=== PATIENT | male | born 1950 | race Caucasian/White ===

== ENCOUNTER 2018-08-08 06:37 | Day surgery (SDC) | payer MEDICARE, OTHER ==
--- NOTE | 2018-08-07 13:19 | PREOPHP ---
DATE OF ADMISSION: 08/08/2018 HISTORY OF PRESENT ILLNESS: This 68-year-old patient is admitted for elective cataract surgery of th e right eye. The patient has had a 2 year history of decreased vision without prior history of eye d isease or injury. The patient does have a positive systemic history for insulin-dependent diabetes m ellitus for the past 2 years as well as some systemic hypertension, neuropathy and GERD. CURRENT MEDICATIONS: Include: 1. Aspirin (discontinued 1 week prior to surgery). 2. Thyroid, 3. Basaglar. 4. Esomeprazole. 5. Ferrous sulfate. 6. Gabapentin. 7. Metformin. 8. Metoprolol 9. Ranitidine. ALLERGIES: THERE ARE NO KNOWN ALLERGIES. PHYSICAL EXAMINATION: Visual acuity with best correction is finger counting in the right eye and 20/ 200 in the left eye. Slit lamp examination reveals advanced nuclear sclerotic cataract and moderate posterior subcapsular cataract in the right eye. Applanation tonometry is 11 mmHg in both eyes. Exa mination of the retina reveals normal appearing optic disk and macula region. 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 DIAGNOSIS: Nuclear sclerotic and posterior subcapsular cataract, right eye. PLAN: Cataract extraction with lens implant, right eye. The risks and alternatives to the surgery h ave been discussed with the patient as well as the potential for improvement of visual acuity leading to greater ability to perform activities of daily living. The patient understands this and agrees t o proceed with surgery. Dictated By: JAMIA MONTERROSO/NIESHA Conf#: [id number] DID#: [id number]
[~2018-08-08] VITALS: Ht 172.7 cm; Wt 65.9 kg
[2018-08-08] VITALS (11 sets, daily range): BP systolic 136–171; BP diastolic 78–88; PULSE 70–73; RESP 14–21; Ht 172.7 cm; Wt 65.9 kg
[2018-08-08] MEDS ORDERED: TROPICAMIDE 1% 15 ML OPH OPER SCH (07:00)
[2018-08-08] MEDS ORDERED: SOD CHLORIDE 0.9% 1,000 ML IV SCH (07:00)
[2018-08-08] MEDS ORDERED: DICLOFENAC 0.1% 2.5 ML OPH OPER SCH (07:00)
[2018-08-08] MEDS ORDERED: CYCLOPENTOLATE/PHENYLEPH 2 ML OPH OPER SCH (07:00)
[2018-08-08] MEDS ORDERED: MOXIFLOXACIN 0.5% 3 ML OPH OPER SCH (07:00)
[2018-08-08] MEDS ORDERED: FER325 PO (07:23)
[2018-08-08] MEDS ORDERED: ALEN70TA5 PO (07:24)
[2018-08-08] MEDS ORDERED: DICL2SOL TP (07:24)
[2018-08-08] MEDS ORDERED: RANI300T PO (07:24)
[2018-08-08] MEDS ORDERED: METF100010 PO (07:25)
[2018-08-08] MEDS ORDERED: AMLO-147 PO (07:25)
[2018-08-08] MEDS ORDERED: THYR30TA PO (07:26)
[2018-08-08] MEDS ORDERED: METO-335 PO (07:26)
[2018-08-08] MEDS ORDERED: ESOM40CA PO (07:26)
--- NOTE | 2018-08-08 09:23 | PREAC ---
Date/Time of Note Date/Time of Note DATE: 08/08/18 TIME: 09:18 Anesthesia Eval and Record Evaluation Time Pre-Procedure Interview DATE: 08/08/18 TIME: 09:18 Age 68 Sex male NPO: 8 hrs Preoperative diagnosis Right Cataract Planned procedure Right Cataract Extraction and IOL Past Medical History Past Medical History: Includes Cardio: HTN, Dyslipidemia Endo: Diabetes, Hypothyroid Pulm: Other Neuro: Other Musculoskeletal: Other Renal: Other Hepatic: Other GI: Obesity Heme: Other Psych: Depression, Anxiety Recreational drugs: Other : Other Surgery & Anesthesia Issues Aspiration risk Meds Anticoagulation: No Beta Hilary within 24 hr: Yes Reason Beta Hilary not given: Other Reported Medications Metoprolol Succinate* (Toprol XL*) 25 Mg Tab.sr.24h, 75 MG PO DAILY, #90 TAB 08/08/18 Esomeprazole Mag Trihydrate (Nexium) 40 Mg Capsule.dr, 40 MG PO DAILY, #30 CAP 08/08/18 Thyroid* ([place] Thyroid*) 30 Mg Tablet, 30 MG PO DAILY, TAB 08/08/18 Amlodipine Besylate* (Amlodipine Besylate*) 10 Mg Tablet, 10 MG PO DAILY, #30 TAB 08/08/18 Metformin Hcl* (Metformin Hcl*) 1,000 Mg Tablet, 1000 MG PO WITH BREAKFAST DINNE, #60 TAB 08/08/18 Ranitidine Hcl* (Ranitidine Hcl*) 300 Mg Tablet, 300 MG PO HS, #30 TAB 08/08/18 Diclofenac Sodium (Pennsaid) 2 Gm Soln.pk.g., 2 GM TP BID 08/08/18 Alendronate Sodium* (Fosamax*) 70 Mg Tablet, 70 MG PO Q7D, #4 TAB 08/08/18 Ferrous Sulfate* (Ferrous Sulfate*) 325 Mg Tabec, 325 MG PO BID, TAB 08/08/18 Current Medications Diclofenac Sodium (Voltaren 0.1%) 1 drop Q5 MIN X 3 OPER Last administered on 08/08/18at 07:27; Admin Dose 1 DROP; Start 08/08/18 at 07:00 Tropicamide (Mydriacyl 1%) 1 drop Q5 MIN X3 OPER Last administered on 08/08/18at 07:28; Admin Dose 1 DROP; Start 08/08/18 at 07:00 Moxifloxacin HCl (Vigamox) 1 drop Q5 MIN X 3 OPER Last administered on 08/08/18at 07:27; Admin Dose 1 DROP; Start 08/08/18 at 07:00 Cyclopentolate/ Phenylephrine (Cyclomydril Oph 2 ml) 1 drop Q5 MIN X 3 OPER Last administered on 08/08/18at 07:27; Admin Dose 1 DROP; Start 08/08/18 at 07:00 Sodium Chloride 1,000 ml @ 25 mls/hr Q24H IV ; Start 08/08/18 at 07:00 Meds reviewed: Yes Allergies Coded Allergies: No Known Allergy (Unverified , 08/08/18) Allergies Reviewed: Yes Labs/Studies Labs Reviewed: Reviewed by anesthesiologist Result Diagram: 08/08/18 0700 Laboratory Tests 08/08/18 07:00 test: N/A Studies: ECG, CXR Pre-procedure Exam Last vitals Vital Signs Date Temp Pulse Resp B/P (MAP) Pulse Ox O2 O2 Flow FiO2 Time Delivery Rate 08/08/18 96.7 73 16 159/78 99 Room Air 07:54 (105) Airway: Adequate mouth opening Mallampati: Mallampati II Teeth: Normal Lung: Normal Heart: Normal Anticipated Difficutly with IV: Anticipate Difficult IV Access ASA Physical Status ASA physical status: 2 Emergency: None Planned Anesthetic General/MAC: MAC Neuraxial: Other Nerve block: Other Planned Pain Management Parenteral pain med, Local by surgeon Pre-operative Attestations Prior to commencing anesthesia and surgery, the patient was re-evaluated, there was verification of: *The patient's identity *The results of appropriate recent lab work and preoperative vital signs *The above evaluation not changing prior to induction *Anesthetic plan, risk benefits, alternative and complications discussed with patient/family; questions answered; patient/family understands, accepts and wishes to proceed. EULALIO WILSON MD Aug 08, 2018 09:23
[2018-08-08] MEDS ORDERED: CEFAZOLIN 1 GM INJ ONE (09:40)
[2018-08-08] MEDS ORDERED: NA HYALURONATE/CHONDROITIN 0.5 ML SYG ONE (09:40)
[2018-08-08] MEDS ORDERED: DEXAMETHASONE 4 MG/ML 1 ML INJ ONE (09:40)
[2018-08-08] MEDS ORDERED: LIDOCAINE 4% (MPF) 5 ML INJ ONE (09:40)
[2018-08-08] MEDS ORDERED: CARBACHOL 0.01% 1.5 ML OPH INJ ONE (09:40)
[2018-08-08] MEDS ORDERED: LIDOCAINE 4% CR ONE (10:27)
[2018-08-08] MEDS ORDERED: PROPOFOL 20 ML ONE (10:28)
[2018-08-08] MEDS ORDERED: LIDOCAINE 100 MG SYRINGE ONE (10:28)
--- NOTE | 2018-08-08 10:38 | SIPON ---
Date/Time of Note Date/Time of Note DATE: 08/08/18 TIME: 10:37 Operative Report Preoperative Diagnosis mature cataract od Postoperative Diagnosis same Operation/Procedure Performed cataract extraction with lens implant od Surgeon jamia pretty rn first assistant none Anesthesia: MAC Estimated blood loss: none Transfusion Required none Specimen none Grafts/Implants posterior chamber lens implant Complications none JAMIA PRETTY MD Aug 08, 2018 10:38
--- NOTE | 2018-08-08 10:39 | PAC ---
Date/Time of Note Date/Time of Note DATE: 08/08/18 TIME: 10:38 Post-Anesthesia Notes Post-Anesthesia Note Last documented vital signs Vital Signs Date Temp Pulse Resp B/P (MAP) Pulse Ox O2 O2 Flow FiO2 Time Delivery Rate 08/08/18 96.7 73 16 159/78 99 Room Air 07:54 (105) Activity: WNL Respiratory function: WNL Cardiovascular function: WNL Mental status: Baseline Pain reasonably controlled: Yes Hydration appropriate: Yes Nausea/Vomiting absent: No EULALIO WILSON MD Aug 08, 2018 10:39
[2018-08-08] MEDS ORDERED: OXYCODONE/ACETAMINOPHEN (5/325) TAB ONE (11:16)
[2018-08-08] MEDS ORDERED: OXYCODONE/ACETAMINOPHEN (5/325) TAB PO PRN (11:30)
--- NOTE | 2018-08-08 14:08 | OPR ---
DATE OF OPERATION: 08/08/2018 PREOPERATIVE DIAGNOSIS: Mature cataract, right eye. POSTOPERATIVE DIAGNOSIS: Mature cataract, right eye. PROCEDURE: Cataract extraction with lens implant, right eye. SURGEON: Jamia Arias MD ANESTHESIOLOGIST: Kelechi Aranda MD ANESTHESIA: Local standby. PROCEDURE: The patient was brought to the operating room and placed on the table with an IV in place and the patient attached to an conveyor monitor. Oxygen was given via face mask. After some intravenous sedation was administered, local anesthesia was given using Xylocaine 2% with epinephrine, mixed with Marcaine 0.5%. This was given in a lid block and retrobulbar injection. The p atient was then prepped and draped in the usual sterile manner. A wire lid speculum was inserted between the lids of the right eye. A Superblade was used to enter th e anterior chamber at the corneoscleral limbus at the 10:30 o'clock position. A separate incision was made using a 3.0-mm keratome which entered the corneoscleral junction at the 12 o'clock position. Th rough this 3-mm opening, an irrigating cystotome was introduced into the anterior chamber. The chambe r was filled with Viscoat and an anterior capsulotomy was performed. Balanced salt solution was then used for hydrodissection of the lens. A phacoemulsification handpiece was then brought into the fie ld and introduced into the anterior chamber. The lens nucleus was emulsified using a deep groove and cracking the nucleus into quadrants. Following this, each quadrant was aspirated and emulsified at th e pupillary margin. This lens nucleus was noted to be 4+ density and required a higher phacoemulsification setting in ord er to fully emulsify the lens nucleus. After this was satisfactorily completed, attention was turned to removal of lens cortical material. After this was completed, the irrigation/aspiration handpiece was brought to the field, introduced in to the posterior chamber, and the lens cortical material was removed. When this was completed, additi onal Viscoat was injected into the anterior and posterior chambers. The 3-mm opening had its internal lips enlarged, and then the posterior chamber intraocular lens malia uring 20.0 diopters ([employer] [id number]) was then injected into the posterior chamber using the lens injector system. After the leading haptic was introduced into the capsular bag and th e lens optic was present in the center of the eye, the injector was removed and the trailing haptic w as grasped with non-toothed forceps and introduced into the capsular fold superiorly. A [place] hook was then used to rotate the intraocular lens so that the lips were oriented in the horizontal meridia n. One 10-0 nylon suture was placed across the wound. Prior to tying, the irrigation/aspiration handpiece was reintroduced into the anterior chamber to rem ove the Viscoat. Miochol was instilled to constrict the pupil, and then the 10-0 nylon suture was tie d. The ends were cut short and then the knot was buried. Then, 0.5 mL of dexamethasone and 0.5 mL of Ancef were injected into the sub-Tenon space in the infer ior fornix. Ciloxan drops were then placed on the surface of the eye. The speculum was removed and a patch was applied. The patient then left the operating room in satisfactory condition. Dictated By: JAMIA MONTERROSO/NIESHA Conf#: [id number] DID#: [id number]
--- NOTE | 2018-08-10 19:57 | RADRPT ---
Vent Rate: 69 bpm RR Interval: 0 msec WI Interval: 166 msec QRS Duration: 90 msec QT Interval: 426 msec QTC Interval: 456 msec P-R-T [place]: 51 - 26 - 168 degrees Normal sinus rhythm Septal infarct , age undetermined T wave abnormality, consider lateral ischemia Abnormal ECG Electronically Signed By: Joseluis Bassett [id number]
== END 2018-08-08 12:21 | disposition home or self-care (01) ==
LOC: SDS 06:37
PROVIDERS: ATTEND Ophthalmology
DX: H25.12 Age-related nuclear cataract, left eye (principal); I10 Essential (primary) hypertension; Z79.82 Long term (current) use of aspirin; E11.9 Type 2 diabetes mellitus without complications; Z79.84 Long term (current) use of oral hypoglycemic drugs; E78.5 Hyperlipidemia, unspecified; E03.9 Hypothyroidism, unspecified
CPT/HCPCS: 66984; 71045; 80053; 82962; 85610; 85730; 93005; J0690; J1100; J2001; V2632

== ENCOUNTER 2018-09-01 11:28 | Inpatient (IN) | payer MEDICARE, OTHER ==
[~2018-09-01] VITALS: Ht 172.7 cm; Wt 64.8 kg
[~2018-09-01 11:28] MED LIST: ALEN70TA5 PO; AMLO-147 PO; DICL2SOL TP; ESOM40CA PO; FER325 PO; METF100010 PO; METO-335 PO; RANI300T PO; THYR30TA PO
[2018-09-01] MEDS ORDERED: SOD CHLORIDE 0.9% 1,000 ML IV STA (11:52)
[2018-09-01] MEDS ORDERED: INSULIN LISPRO 100 UNIT/ML VIAL SC STA (13:10)
[2018-09-01] MEDS ORDERED: CEPH-443 PO (13:53)
--- NOTE | 2018-09-01 14:22 | ERD ---
ER Documentation Chief Complaint Chief Complaint left leg pain and swelling, hyperglycemia, HPI This is a 68-year-old male with a history of hypertension high cholesterol xtu-[id number]-[id number] diabetes mellitus on metformin and gabapentin. The patient has history of recent cataract surgery of the right eye performed on August 08, 2018 with the patient had a subcapsular cataract with extraction and lens implant. The patient was in adult daycare today when he accidentally cut the bottom of his left foot. He said he is complaining of mild pain over the left foot. He also states over the past several days he has had pain and swelling of his left leg. He states he had no shortness of breath at rest or exertion. The adult daycare took his blood sugar and he was hyperglycemic and therefore he was sent to the emergency department to be further evaluated. The patient denies any polyuria or polydipsia. He has no chest pain. He has no abdominal pain. He denies a headache. He denies any changes in vision at this time. The patient states his been compliant with all his medications. ROS All systems reviewed and are negative except as per history of present illness. Medications Home Meds Active Scripts Cephalexin* (Keflex*) 500 Mg Capsule, 500 MG PO Q8, #21 CAP Prov:JESUS WEBSTER MD 09/01/18 Reported Medications Metoprolol Succinate* (Toprol XL*) 25 Mg Tab.sr.24h, 75 MG PO DAILY, #90 TAB 08/08/18 Esomeprazole Mag Trihydrate (Nexium) 40 Mg Capsule.dr, 40 MG PO DAILY, #30 CAP 08/08/18 Thyroid* ([place] Thyroid*) 30 Mg Tablet, 30 MG PO DAILY, TAB 08/08/18 Amlodipine Besylate* (Amlodipine Besylate*) 10 Mg Tablet, 10 MG PO DAILY, #30 TAB 08/08/18 Metformin Hcl* (Metformin Hcl*) 1,000 Mg Tablet, 1000 MG PO WITH BREAKFAST DINNE, #60 TAB 08/08/18 Ranitidine Hcl* (Ranitidine Hcl*) 300 Mg Tablet, 300 MG PO HS, #30 TAB 08/08/18 Diclofenac Sodium ([place]aid) 2 Gm Soln.pk.g., 2 GM TP BID 08/08/18 Alendronate Sodium* (Fosamax*) 70 Mg Tablet, 70 MG PO Q7D, #4 TAB 08/08/18 Ferrous Sulfate* (Ferrous Sulfate*) 325 Mg Tabec, 325 MG PO BID, TAB 08/08/18 Allergies Allergies: Coded Allergies: No Known Allergy (Unverified , 09/01/18) PMhx/Soc History of Surgery: Yes (cardiac cath with stent placement) Anesthesia Reaction: No Hx Neurological Disorder: No Hx Respiratory Disorders: No Hx Cardiac Disorders: Yes (htn, chol) Hx Psychiatric Problems: No Hx Miscellaneous Medical Probl: Yes (dm) Hx Alcohol Use: No Hx Substance Use: No Hx Tobacco Use: No Smoking Status: Never smoker Physical Exam Vitals Vital Signs Date Temp Pulse Resp B/P (MAP) Pulse Ox O2 O2 Flow FiO2 Time Delivery Rate 09/01/18 99.4 104 18 163/80 98 11:40 (107) Physical Exam Constitutional:Well-developed. Well-nourished. Patient showed no signs of respiratory distress. HEENT:Normocephalic. Atraumatic.Pupils were equal round reactive to light. Moist mucous membranes.No tonsillar exudates. Neck: No nuchal rigidity. No lymphadenopathy. No posterior cervical spine tenderness or step-offs. Respiratory: Not using accessory muscles of respiration.Lungs were clear to auscultation bilaterally. No rhonchi. No rales. No wheezing. Cardiovascular: Regular rate regular rhythm.No murmurs. No rubs were appreciated.S1, S2 normal. Distal pulses are palpable 2+ bilaterally. GI: Abdomen was soft. Nontender. Non Distended. No pulsatile abdominal masses or bruits. No rebound. No guarding. Bowel sounds were present and normal. Muscle skeletal: Full range of motion of both the upper and lower extremities bilaterally.Normal muscle tone.mild asymmetrical swelling of the left calf compared to the right. Homans sign negative bilaterally. No tenderness of the left calf. Skin: No petechia, no purpura. No lesions on the palms or the soles of the feet. No maculopapular rash. 2 cm linear abrasion over the palmar surface of the left foot distal first and second metatarsal. Very mild surrounding erythremia, warmth, mild tenderness and no fluctuance or induration. NEURO: Patient was alert, awake, orientated x3.No facial droop. Gait observed an d normal with no ataxia.Speech had regular rate and rhythm. No focal neurological deficits. Result Diagram: 2/15/19 1230 09/01/18 1230 Results 24 hrs Laboratory Tests Test 09/01/18 12:30 09/01/18 13:55 White Blood Count 12.2 10^3/ul Red Blood Count 3.27 10^6/ul Hemoglobin 9.8 g/dl Hematocrit 30.1 % Mean Corpuscular Volume 92.0 fl Mean Corpuscular Hemoglobin 30.0 pg Mean Corpuscular Hemoglobin Concent 32.6 g/dl Red Cell Distribution Width 13.0 % Platelet Count 306 10^3/UL Mean Platelet Volume 10.1 fl Immature Granulocytes % 0.300 % Neutrophils % 83.7 % Lymphocytes % 9.8 % Monocytes % 5.7 % Eosinophils % 0.2 % Basophils % 0.3 % Nucleated Red Blood Cells % 0.0 /100WBC Immature Granulocytes # 0.040 10^3/ul Neutrophils # 10.2 10^3/ul Lymphocytes # 1.2 10^3/ul Monocytes # 0.7 10^3/ul Eosinophils # 0.0 10^3/ul Basophils # 0.0 10^3/ul Nucleated Red Blood Cells # 0.0 10^3/ul Prothrombin Time 13.8 Sec Prothrombin Time Ratio 1.1 INR International Normalized Ratio 1.05 Activated Partial Thromboplast Time 34.9 Sec Sodium Level 137 mmol/L Potassium Level 4.9 mmol/L Chloride Level 97 mmol/L Carbon Dioxide Level 30 mmol/L Anion Gap 10 Blood Urea Nitrogen 22 mg/dl Creatinine 0.95 mg/dl Est Glomerular Filtrat Rate mL/min > 60 mL/min Glucose Level 428 mg/dl Calcium Level 9.3 mg/dl Total Bilirubin 0.6 mg/dl Direct Bilirubin 0.00 mg/dl Indirect Bilirubin 0.6 mg/dl Aspartate Amino Transf (AST/SGOT) 13 IU/L Alanine Aminotransferase (ALT/SGPT) 16 IU/L Alkaline Phosphatase 66 IU/L Creatine Kinase 39 IU/L Creatine Kinase Index 1.6 Creatinine Kinase MB (Mass) 0.62 ng/ml Troponin I < 0.012 ng/ml B-Type Natriuretic Peptide 1350 PG/ML Total Protein 7.4 g/dl Albumin 3.9 g/dl Globulin 3.50 g/dl Albumin/Globulin Ratio 1.11 Bedside Glucose 390 mg/dL Current Medications Medications Dose Sig/Rangel Start Time Status Last (Trade) Ordered Route PRN Stop Time Admin Dose Reason Admin Sodium 1,000 ml @ Q1H STAT 09/01/18 DC 09/01/18 Chloride 1,000 mls/hr IV 11:52 12:40 09/01/18 12:51 Insulin 10 unit ONCE STAT 09/01/18 DC 09/01/18 Human SC 13:10 14:01 Lispro 09/01/18 13:18 (Humalog) Procedures/MDM The patient presented to the emergency department with a superficial abrasion on the palmar surface of the left foot radiographic imaging was obtained reviewed by myself the radiologist which showed no evidence of a foreign body. The patient's physical exam findings also indicated a spreading erythematous superficial infection of the skin and subcutaneous tissues. My differential diagnosis included but was not limited to necrotizing fasciitis, lymphangitis, thrombophlebitis, deep vein thrombosis, allergic reaction, neoplasm, gout or abscess. Predisposing factors of the progressive spread of erythema, warmth, pain and tenderness was considered such as lymphedema, tinea pedis, open wounds, prior trauma or surgery, pre-existing skin lesion (furuncle), retained foreign body, injection drug use or vascular or immune compromise. The patient was placed on antibiotics to cover Staphylococcus aureus, including resistant strains such as community-acquired methicillin-resistant S. aureus. Given that the patient is a diabetic he will be placed on oral Keflex on an outpatient basis to prevent secondary bacterial infection and treat mild cellulitis. The patient had a venous duplex ultrasound of the left lower extremity that showed no evidence of a deep vein thrombosis as he was also complaining of mild swelling of his left lower extremity. The patient had chest radiograph which showed no pulmonary vascular congestion or infiltrates. The patient's BNP was elevated but the patient had no respiratory distress. I did indicate to the patient that he will require a outpatient follow-up with his primary care physician for further evaluation into the onset of possible new onset congestive heart failure. The patient was hyperglycemic without ketosis. He did receive IV fluids. He also received subcutaneous insulin with resolution of his blood glucose. 12 Lead EKG tracing ordered and reviewed by myself showed: Sinus tachycardia 102 bpm and no arrhythmia. VT interval normal. QRS duration normal. No ST segment elevation No ST segment depression. No changes consistent with acute ischemia. The patient was discharged home in fair condition. They were instructed to return to the emergency department at any time if there was any worsening of their condition. The patient stated they would follow up with their PCP in the next 24-48 hours to initiate a suitable medication regimen under the care of their PCP as well as to allow their PCP to monitor any drug reactions. The patient was discharged home with prescriptions after they gave informed consent to the new medication. They were also fully informed by myself on the adverse effects and adverse drug interactions in order to provide adequate safeguards to prevent possible adverse reactions to medications. Departure Diagnosis: Primary Impression: Pain of left leg Additional Impressions: Foot abrasion, infected Encounter type: initial encounter Laterality: left Qualified Codes: S90.812A - Abrasion, left foot, initial encounter; L08.9 - Local infection of the skin and subcutaneous tissue, unspecified Hyperglycemia without ketosis Condition: Fair Patient Instructions: Hyperglycemia (High Blood Sugar), [facility] JESUS WEBSTER MD Sep 01, 2018 14:22
[2018-09-01] MEDS ORDERED: INSULIN LISPRO 100 UNIT/ML VIAL SC ONE (15:00)
--- NOTE | 2018-09-01 15:53 | QN ---
Documentation Comment Patient is a 68-year-old male who was signed out to me by Dr. Arana. The patient was found to have a left-sided DVT. He has no history of DVT and is not on anticoagulation despite the ultrasound saying chronic. Therefore I do believe he would benefit from admission and anticoagulation. I have ordered Eliquis. The patient will be admitted to the panel team to a medical surgical bed. CHAIM BACON MD Sep 01, 2018 15:53
[2018-09-01] MEDS ORDERED: APIXABAN 5 MG TABLET PO ONE (16:00)
[2018-09-01] MEDS ORDERED: ACETAMINOPHEN 325 MG TAB PO PRN ×2 (16:30→18:00)
[2018-09-01] MEDS ORDERED: ONDANSETRON 4 MG INJ IV PRN ×2 (16:30→18:00)
[2018-09-01 17:49] VITALS: Ht 172.7 cm; Wt 64.8 kg
[2018-09-01] MEDS ORDERED: DOCUSATE SODIUM 100 MG CAP PO PRN (18:00)
[2018-09-01] MEDS ORDERED: LORAZEPAM 2 MG INJ IV PRN (18:00)
[2018-09-01] MEDS ORDERED: hydrALAzine 20 MG INJ IV PRN (18:00)
[2018-09-01] MEDS ORDERED: ALENDRONATE 70 MG TAB PO SCH (18:00)
[2018-09-01] MEDS ORDERED: HYDROCODONE/APAP (5/325) TAB PO PRN (18:00)
[2018-09-01] MEDS ORDERED: MAGNESIUM HYDROXIDE 30ML CUP PO PRN (18:00)
[2018-09-01] MEDS ORDERED: NACL 0.9% 3 ML SYG IV SCH (18:00)
[2018-09-01] MEDS ORDERED: NITROGLYCERIN (SL) 0.4 MG TAB SL PRN (18:00)
[2018-09-01] MEDS ORDERED: ALBUTEROL/IPRATROPIUM (NEB) 3 ML AMP HHN PRN (18:00)
[2018-09-01] MEDS: SOD CHLORIDE 0.45% 1,000 ML IV SCH (18:29)
[2018-09-01] MEDS: morphine 2 MG INJ IV PRN (18:29)
[2018-09-01] MEDS ORDERED: GLUCOSE GEL 15 GRAM TUBE PO PRN ×2 (18:30)
[2018-09-01] MEDS ORDERED: GLUCAGON 1 MG INJ IM PRN (18:30)
[2018-09-01] MEDS ORDERED: GLUCOSE GEL 15 GRAM TUBE BUCCAL PRN (18:30)
[2018-09-01] MEDS ORDERED: DEXTROSE 50% 50 ML SYRINGE IV PRN ×2 (18:30)
--- NOTE | 2018-09-01 19:12 | HP ---
DATE OF ADMISSION: 09/01/2018 IDENTIFICATION: This is a 68-year-old. CHIEF COMPLAINT: Left leg pain and swelling, high blood sugars. HISTORY OF PRESENT ILLNESS: A 68-year-old male with past medical history based on records of type 2 diabetes, high cholesterol, hypertension, recent cataract surgery, who has been complaining of left l ower extremity pain. Most of the information is obtained from the ER documentation as the patient is unable to provide full HPI at this time. He does, however, deny any chest pain or shortness of cecy th. Presently, no upper or lower GI bleeding, no nausea, vomiting, diarrhea or constipation, no feve rs or chills. Apparently per records at his adult daycare, he had been complaining of left lower ext remity pain for the last few days. He was also found at that facility with high blood sugar and was sent for the ER for further evaluation. When he came in, he had a lower extremity ultrasound perform ed that showed partially compressible left common femoral vein and great saphenous junction compressi ble suspicious for partially calcified thrombus. His sugar was also found initially 428. He was giv en insulin in the ER. It is down to 391. No signs of DKA. His BNP was also a little bit high at 13 00. PAST MEDICAL HISTORY: As above. ALLERGIES: NO KNOWN DRUG ALLERGIES. HOME MEDICATIONS: 1. Keflex 500 mg 3 times a day for 7 days. 2. Ferrous sulfate 325 mg b.i.d. 3. Amlodipine 10 mg daily. 4. Toprol-XL 75 mg daily. 5. 2 grams b.i.d. 6. Nexium 40 mg daily. 7. Ranitidine 300 mg at bedtime. 8. Metformin 1000 mg twice a day. 9. [place] thyroid 30 mg daily. 10. Fosamax 70 mg weekly. PAST SURGICAL HISTORY: Again, he had recent right eye cataract surgery 1 month ago, also possible ca rdiac stent placement in the past, although this is unclear. SOCIAL HISTORY: Negative for smoking, drinking or IV drug abuse. FAMILY HISTORY: Noncontributory. PHYSICAL EXAMINATION: VITAL SIGNS: T-max 99.4, pulse 104, respirations 19, blood pressure 163/80, satting at 98% room air. GENERAL: The patient is lying in bed, answering simple questions, in no acute distress. HEENT: Pupils are equal, round, react to light. Extraocular muscles are intact. NECK: Supple. No thyromegaly. LUNGS: Clear to auscultation bilaterally. CARDIOVASCULAR: S1, S2 heard. No rubs or gallops. ABDOMEN: Soft, nontender, nondistended. Normal bowel sounds. No rebound, no guarding. MUSCULOSKELETAL: He has got tenderness to palpation in the left calf area, slightly swollen compared to the right. No redness noted. Otherwise, no lower extremity edema bilaterally. NEUROLOGIC: No focal deficits. LABORATORIES: WBC 12.2. The rest of the CBC is normal. The coags are normal. Basic metabolic pane l was normal. Initial sugar was 428. Again, this came down after some insulin was given. His LFTs are normal. His BNP is 1350. Troponin is negative x1. DIAGNOSTIC DATA: We mentioned the lower extremity Doppler finding. The chest x-ray shows mild left lower lobe linear atelectatic changes. Left foot x-ray: There was some swelling noted, but otherwis e no fractures or dislocations ASSESSMENT AND PLAN: This is a 68-year-old male with questionable cardiac history, hypertension, high cholesterol, diabete s and questionable cardiac stent who comes in with left lower extremity pain and swelling and finding s of acute deep venous thrombosis and also some elevated blood sugars. 1. Left lower extremity pain and swelling again likely secondary to acute deep venous thrombosis. P ut him on Eliquis 10 mg b.i.d. for a week and then switch him to 5 mg b.i.d. for at least 3 months. Check TSH, A1c, lipid panel. Give him pain control medications, IV fluids. Get PT consult. Need to further investigate why patient may have developed blood clot. He does apparently live in an adult daycare facility. 2. Hypertension. Blood pressure is stable. Continue current cardiac medications. 3. History of type 2 diabetes. Hold his home metformin but follow up A1c. Put him on sliding scale insulin. 4. High cholesterol. Follow up lipid panel. 5. Again deep venous thrombosis prophylaxis. He will be on Eliquis for treatment of deep venous thr ombosis. Dictated By: AMANDA PATTERSON Conf#: [id number] DID#: [id number]
[2018-09-01 20:00] VITALS: BP 174/78; PULSE 92; RESP 18
[2018-09-01 20:50] VITALS: BP 168/79; PULSE 86
[2018-09-01] MEDS: INSULIN ASPART [NOVOLOG] 3 ML PEN SC SCH (21:00)
[2018-09-01] MEDS: APIXABAN 5 MG TABLET PO SCH (21:09)
[2018-09-01] MEDS: RANITIDINE 150 MG TAB PO SCH (21:09)
[2018-09-01] MEDS: FERROUS SULFATE (EC) 325 MG TAB PO SCH (21:09)
[2018-09-02] MEDS: INSULIN ASPART [NOVOLOG] 3 ML PEN SC SCH ×6 (00:40→20:45)
[2018-09-02 02:00] VITALS: BP 128/60; PULSE 86; RESP 17
[2018-09-02 07:15] VITALS: BP 136/64; PULSE 88; RESP 17
[2018-09-02] MEDS: SOD CHLORIDE 0.45% 1,000 ML IV SCH ×2 (07:42→23:33)
[2018-09-02] MEDS: METOPROLOL (XL) 25 MG TAB PO SCH (09:08)
[2018-09-02] MEDS: FERROUS SULFATE (EC) 325 MG TAB PO SCH ×2 (09:08→20:43)
[2018-09-02] MEDS: APIXABAN 5 MG TABLET PO SCH ×2 (09:08→20:43)
[2018-09-02] MEDS: THYROID 30 MG TAB PO SCH (09:09)
[2018-09-02] MEDS: AMLODIPINE 10 MG TAB PO SCH (09:09)
[2018-09-02] MEDS: morphine 2 MG INJ IV PRN (09:19)
[2018-09-02 14:08] VITALS: BP 103/51; PULSE 80; RESP 16
--- NOTE | 2018-09-02 15:31 | PDOCDIS ---
Discharge Instructions CONDITION [id number] Patient Condition: [id number] Stable HOME CARE INSTRUCTIONS: [id number] Diet Instructions: [id number] Low Fat /Cholesterol ACTIVITY: [id number] Activity Restrictions: [id number] Slowly Increase Activity Rest between Activity Avoid heavy lifting FOLLOW UP/APPOINTMENTS Follow-up Plan Please take your medications as prescribed. Please see your doctor in the clinic in the next 1 week. AMANDA ALVAREZ Sep 02, 2018 15:31
[2018-09-02] MEDS ORDERED: APIX2.5T PO (15:33)
[2018-09-02] MEDS ORDERED: APIX5TAB PO (15:33)
--- NOTE | 2018-09-02 15:37 | DS ---
Date/Time of Note Date/Time of Note DATE: 09/02/18 TIME: 15:33 Discharge Summary Admission/Discharge Info Admit Date/Time Sep 01, 2018 at 16:31 Discharge Date/Time Discharge Diagnosis 1. Left lower extremity pain and swelling - secondary to acute deep venous t hrombosis -now on Eliquis 2. Hypertension. Blood pressure is stable. 3. History of type 2 diabetes. A1c was 9.6 4. High cholesterol. Patient Condition: Stable Procedures Left lower extremity ultrasound: IMPRESSION: Partially compressible left common femoral vein and great saphenous junction, with echogenic material within it, suspicious for chronic DVT. Hx of Present Illness 68-year-old male with past medical history based on records of type 2 diabetes, high cholesterol, hypertension, recent cataract surgery, who has been complaining of left lower extremity pain. Most of the information is obtained from the ER documentation as the patient is unable to provide full HPI at this time. He does, however, deny any chest pain or shortness of breath. Presently, no upper or lower GI bleeding, no nausea, vomiting, diarrhea or constipation, no fevers or chills. Apparently per records at his adult daycare, he had been complaining of left lower extremity pain for the last few days. He was also found at that facility with high blood sugar and was sent for the ER for further evaluation. When he came in, he had a lower extremity ultrasound performed that showed partially compressible left common femoral vein and great saphenous junction compressible suspicious for partially calcified thrombus. His sugar was also found initially 428. He was given insulin in the ER. It is down to 391. No signs of DKA. His BNP was also a little bit high at 1300. Hospital Course Patient was admitted to medical surgical unit. He was placed on Eliquis medication to help treat his blood clot. He was found with slightly elevated BNP levels, echocardiogram was performed, patient had no shortness of breath symptoms. Electrolytes were stable. He was back at his baseline status. No shortness of breath symptoms. Results of echocardiogram was still pending by the time of this discharge summary. His A1c is found to be 9.6 and his insulin regimen once dose adjusted accordingly and sugars were stable by the time of discharge. Because the vital signs are stable the patient will be discharged likely back home once case management has contacted appropriate family members, he will go in improved condition. He will need to take 10 mg of Eliquis for another 6 days twice a day. Then starting on September 08, 2018 he will start taking 5 mg twice a day of Eliquis for the next 3 months. See below for full list of discharge medications. Home Meds Active Scripts Apixaban* (Eliquis*) 2.5 Mg Tablet, 5 MG PO BID for 90 Days, #180 TAB Prov:LOGANAMANDA S. 09/02/18 Apixaban* (Eliquis*) 5 Mg Tablet, 10 MG PO BID for 6 Days, #12 TAB Prov:LOGANAMANDA S. 09/02/18 Cephalexin* (Keflex*) 500 Mg Capsule, 500 MG PO Q8, #21 CAP Prov:JESUS WEBSTER MD 09/01/18 Reported Medications Metoprolol Succinate* (Toprol XL*) 25 Mg Tab.sr.24h, 75 MG PO DAILY, #90 TAB 08/08/18 Esomeprazole Mag Trihydrate (Nexium) 40 Mg Capsule.dr, 40 MG PO DAILY, #30 CAP 08/08/18 Thyroid* ([place] Thyroid*) 30 Mg Tablet, 30 MG PO DAILY, TAB 08/08/18 Amlodipine Besylate* (Amlodipine Besylate*) 10 Mg Tablet, 10 MG PO DAILY, #30 TAB 08/08/18 Metformin Hcl* (Metformin Hcl*) 1,000 Mg Tablet, 1000 MG PO WITH BREAKFAST DINNE, #60 TAB 08/08/18 Ranitidine Hcl* (Ranitidine Hcl*) 300 Mg Tablet, 300 MG PO HS, #30 TAB 08/08/18 Diclofenac Sodium (Pennsaid) 2 Gm Soln.pk.g., 2 GM TP BID 08/08/18 Alendronate Sodium* (Fosamax*) 70 Mg Tablet, 70 MG PO Q7D, #4 TAB 08/08/18 Ferrous Sulfate* (Ferrous Sulfate*) 325 Mg Tabec, 325 MG PO BID, TAB 08/08/18 Follow-up Plan Please take your medications as prescribed. Please see your doctor in the clinic in the next 1 week. Primary Care Provider Not On Staff Doctor Time spent on discharge: > 30 minutes Pending Labs Laboratory Tests Test 09/01/18 19:02 09/01/18 21:07 09/01/18 21:30 09/02/18 00:32 Prothrombin 14.2 Time Sec (11.9-14.9) Prothrombin 1.1 Time Ratio INR 1.09 International Normalized Rati o Activated 43.4 Partial Thrombo Sec (23.0-35.0) plast Time Bedside 128 184 Glucose mg/dL (70-220) mg/dL (70-220) Urine Color YELLOW (YELLOW ) Urine Clarity CLEAR (CLEAR) Urine pH 5.0 (5.0-9.0) Urine Specific 1.021 (1.003-1 [place] .030) Urine Ketones TRACE mg/dL (NEGATIV E) Urine Nitrite NEGATIVE mg/dL (NEGATIV E) Urine NEGATIVE Bilirubin mg/dL (NEGATIV E) Urine NEGATIVE Urobilinogen mg/dL (NEGATIV E) Urine Leukocyte NEGATIVE Celine/u Esterase l Urine 3 /HPF (0-5) Microscopic RBC Urine 1 /HPF (0-5) Microscopic WBC Urine Mucus FEW /HPF (NONE SEEN) Urine 1+ Hemoglobin mg/dL (NEGATIV E) Urine Glucose 3+ mg/dL (NEGATIV E) Urine Total 2+ Protein mg/dl (NEGATIV E) Test 09/02/18 05:01 09/02/18 05:57 09/02/18 09:06 09/02/18 11:37 White Blood 9.6 Count 10^3/ul (4.8-10 .8) Red Blood 2.82 Count 10^6/ul (4.70-6 .10) Hemoglobin 8.5 g/dl (14.0-18.0 ) Hematocrit 26.2 % (42.0-52.0) Mean 92.9 Corpuscular fl (82.0-101.0) Volume Mean 30.1 Corpuscular pg (29.0-33.0) Hemoglobin Mean 32.4 Corpuscular g/dl (32.0-37.0 Hemoglobin Conc ) ent Red Cell 13.0 Distribution % (11.5-14.5) Width Platelet Count 286 10^3/UL (140-41 5) Mean Platelet 10.0 Volume fl (7.4-10.4) Immature 0.300 Granulocytes % % (0.001-0.429) Neutrophils % 72.5 % (39.0-77.0) Lymphocytes % 19.0 % (15.0-51.0) Monocytes % 6.7 % (0.0-11.0) Eosinophils % 1.1 % (0.0-7.0) Basophils % 0.4 % (0.0-2.0) Nucleated Red 0.0 Blood Cells % /100WBC (0.0-0. 0) Immature 0.030 Granulocytes # 10^3/ul (0.0-0. 031) Neutrophils # 7.0 10^3/ul (1.6-7. 5) Lymphocytes # 1.8 10^3/ul (0.8-2. 9) Monocytes # 0.6 10^3/ul (0.3-0. 9) Eosinophils # 0.1 10^3/ul (0.0-0. 5) Basophils # 0.0 10^3/ul (0.0-0. 1) Nucleated Red 0.0 Blood Cells # 10^3/ul (0.0-0. 0) Sodium Level 137 mmol/L (135-144 ) Potassium 4.2 Level mmol/L (3.5-5.1 ) Chloride Level 102 mmol/L (97-110) Carbon Dioxide 28 Level mmol/L (21-31) Anion Gap 7 (5-13) Blood Urea 21 mg/dl (7-20) Nitrogen Creatinine 0.67 mg/dl (0.61-1.2 4) Est Glomerular > 60 Filtrat mL/min (>60) Rate mL/min Glucose Level 158 mg/dl (70-220) Hemoglobin A1c 9.6 % (0-5.9) Calcium Level 8.7 mg/dl (8.4-10.2 ) Triglycerides 63 Level mg/dl (0-149) Cholesterol 124 Level mg/dl (100-200) LDL 62 mg/dl Cholesterol, Calculated HDL 49 Cholesterol mg/dl (30-78) Cholesterol/HDL 2.5 RATIO Ratio Thyroid 0.285 Stimulating MIU/L (0.465-4. Hormone (TSH) 680) Bedside 158 170 256 Glucose mg/dL (70-220) mg/dL (70-220) mg/dL (70-220) AMANDA ALVAREZ Sep 02, 2018 15:37
--- NOTE | 2018-09-02 16:30 | RADRPT ---
Echocardiogram Report Patient Name: MELINA STRONGTOPatient ID: [id number] : 1950 (68y 2m)Study Date: 09/02/2018 8:21:28 AM Gender: MAccession #: [id number] Tech: BIRD Location: Ref.Physician: AMANDA ALVAREZ Height(Cm): BSA: Weight(Kg): Quality: AdequateAccount #: Procedures: Echocardiographic Report: Transthoracic echocardiogram with complete 2D, M-Mode, and doppler examination. Indications: DVT, high BNP. Measurements: 2D/M Mode Doppler Measurement Value Normal Range Measurement Value Normal Range LVIDd 2D 5.3 [ 4.2 - 5.8 ] cm AV Peak [place]roy 1.6 [ 100.0 - 170.0 ] cm/sec LVIDs 2D 3.8 [ 2.5 - 4.0 ] cm AV Peak PG 10.0 [ 2.0 - 9.0 ] mmHg LVPWd 2D 1.1 [ 0.6 - 1.0 ] cm LVOT Peak [place] 0.8 [ 70.0 - 110.0 ] cm/sec IVSd 2D 1.0 [ 0.6 - 1.0 ] cm LVOT Peak PG 2.0 [ 2.0 - 6.0 ] mmHg AoR Diam 2D 3.5 [ 2.6 - 3.4 ] cm Lat E` Elroy 0.1 [ 10.0 - 15.0 ] cm/sec EDV 2D 138.0 [ 62.0 - 150.0 ] ml Med E` Elroy 0.1 cm/sec ESV 2D 61.2 [ 21.0 - 61.0 ] ml TR Peak Elroy 2.4 [ 100.0 - 280.0 ] cm/sec EF 2D 55.7 [ 52.0 - 72.0 ] percent TR Peak PG 23.0 mmHg LA Dimen 2D 4.6 [ 3.0 - 4.0 ] cm PV Peak Elroy 1.4 [ 40.0 - 80.0 ] cm/sec PV Peak PG 8.0 mmHg RVSP 33.0 [ 10.0 - 36.0 ] mmHg RA Pressure 10.0 mmHg Findings: Left Ventricle: Lower limits of normal systolic function. Normal left ventricular cavity size. Ejection fraction is visually estimated at 50 %. Probable diastolic dysfunction. These segments of the LV are hypokinetic apical anterior segment and apex. Right Ventricle: Normal right ventricular size. Normal right ventricular systolic function. Left Atrium: There is mild enlargement of left atrium. Right Atrium: The right atrium is normal in size. Atrial Septum: Normal atrial septum. Mitral Valve: Normal appearance of the mitral valve. Mild mitral annular calcification. Mild mitral valve regurgitation. Aortic Valve: No hemodynamically significant aortic stenosis by doppler. Aortic cusps appear mildly calcified. Trileaflet aortic valve. No aortic regurgitation. Tricuspid Valve: Normal appearance of the tricuspid valve. Estimated peak PA systolic pressure 33 mmHg. There is mild tricuspid regurgitation. Pulmonic Valve: Normal pulmonic valve appearance. No evidence of pulmonic regurgitation. Pericardium: Small pericardial effusion. Aorta: Normal aortic root. IVC: Normal size and normal respiratory collapse consistent with normal right atrial pressure. Pulmonary Artery: Normal pulmonary artery size. Conclusions: Lower limits of normal systolic function. Normal left ventricular cavity size. Ejection fraction is visually estimated at 50 %. Probable diastolic dysfunction. These segments of the LV are hypokinetic apical anterior segment and apex. There is mild enlargement of left atrium. Normal appearance of the mitral valve. Mild mitral annular calcification. Mild mitral valve regurgitation. No hemodynamically significant aortic stenosis by doppler. Aortic cusps appear mildly calcified. Trileaflet aortic valve. No aortic regurgitation. Normal appearance of the tricuspid valve. Estimated peak PA systolic pressure 33 mmHg. There is mild tricuspid regurgitation. Small pericardial effusion. Electronically Signed By: Jerry Pozo 2018-09-02 16:29:05 PST
[2018-09-02 19:29] VITALS: BP 125/57; PULSE 73; RESP 18
[2018-09-02] MEDS: RANITIDINE 150 MG TAB PO SCH (20:44)
[2018-09-03 01:54] VITALS: BP 121/59; PULSE 75; RESP 17
[2018-09-03] MEDS: ACCU-CHEK XX SCH (02:00)
[2018-09-03] MEDS: morphine 2 MG INJ IV PRN ×2 (02:11→12:46)
[2018-09-03 08:14] VITALS: BP 161/69; PULSE 74; RESP 18
[2018-09-03] MEDS: INSULIN ASPART [NOVOLOG] 3 ML PEN SC SCH ×4 (08:29→21:12)
[2018-09-03] MEDS: APIXABAN 5 MG TABLET PO SCH ×2 (08:29→21:11)
[2018-09-03] MEDS: THYROID 30 MG TAB PO SCH (08:29)
[2018-09-03] MEDS: FERROUS SULFATE (EC) 325 MG TAB PO SCH ×2 (08:30→21:11)
[2018-09-03] MEDS: AMLODIPINE 10 MG TAB PO SCH (08:30)
[2018-09-03] MEDS: METOPROLOL (XL) 25 MG TAB PO SCH (08:30)
[2018-09-03] MEDS: SOD CHLORIDE 0.45% 1,000 ML IV SCH ×2 (09:49→13:01)
--- NOTE | 2018-09-03 11:45 | DS ---
Date/Time of Note Date/Time of Note DATE: 09/03/18 TIME: 11:43 Discharge Summary Admission/Discharge Info Admit Date/Time Sep 01, 2018 at 16:31 Discharge Date/Time Discharge Diagnosis 1. Left lower extremity pain and swelling - secondary to acute deep venous t hrombosis -now on Eliquis 2. Hypertension. Blood pressure is stable. 3. History of type 2 diabetes. A1c was 9.6 4. High cholesterol. Patient Condition: Stable Hx of Present Illness 68-year-old male with past medical history based on records of type 2 diabetes, high cholesterol, hypertension, recent cataract surgery, who has been com plaining of left lower extremity pain. Most of the information is obtained from the ER documentation as the patient is unable to provide full HPI at this time. He does, however, deny any chest pain or shortness of breath. Presently, no upper or lower GI bleeding, no nausea, vomiting, diarrhea or constipation, no fevers or chills. Apparently per records at his adult daycare, he had been complaining of left lower extremity pain for the last few days. He was also found at that facility with high blood sugar and was sent for the ER for further evaluation. When he came in, he had a lower extremity ultrasound performed that showed partially compressible left common femoral vein and great saphenous junction compressible suspicious for partially calcified thrombus. His sugar was also found initially 428. He was given insulin in the ER. It is down to 391. No signs of DKA. His BNP was also a little bit high at 1300. Hospital Course Patient was admitted to medical surgical unit. He was placed on Eliquis medication to help treat his blood clot. He was found with slightly elevated BNP levels, echocardiogram was performed, patient had no shortness of breath symptoms. Electrolytes were stable. He was back at his baseline status. No shortness of breath symptoms. Results of echocardiogram was still pending by the time of this discharge summary. His A1c is found to be 9.6 and his insulin regimen once dose adjusted accordingly and sugars were stable by the time of discharge. Patient had to stay in the hospital the night of September 02, 2018 as there was not family available to come get the patient and we were still trying to sort out where his actual residence and discharge plan would be. Today September 03 because the vital signs are stable the patient will be discharged likely back home once telemetry psychiatry has evaluated patient made the recommendations. He will need to take 10 mg of Eliquis for another 6 days twice a day. Then starting on September 08, 2018 he will start taking 5 mg twice a day of Eliquis for the next 3 months. See below for full list of discharge medications. Home Meds Active Scripts Apixaban* (Eliquis*) 2.5 Mg Tablet, 5 MG PO BID for 90 Days, #180 TAB Prov:AMANDA ALVAREZ S. 09/02/18 Apixaban* (Eliquis*) 5 Mg Tablet, 10 MG PO BID for 6 Days, #12 TAB Prov:AMANDA ALVAREZ S. 09/02/18 Cephalexin* (Keflex*) 500 Mg Capsule, 500 MG PO Q8, #21 CAP Prov:JESUS WEBSTER MD 09/01/18 Reported Medications Metoprolol Succinate* (Toprol XL*) 25 Mg Tab.sr.24h, 75 MG PO DAILY, #90 TAB 08/08/18 Esomeprazole Mag Trihydrate (Nexium) 40 Mg Capsule.dr, 40 MG PO DAILY, #30 CAP 08/08/18 Thyroid* ([place] Thyroid*) 30 Mg Tablet, 30 MG PO DAILY, TAB 08/08/18 Amlodipine Besylate* (Amlodipine Besylate*) 10 Mg Tablet, 10 MG PO DAILY, #30 TAB 08/08/18 Metformin Hcl* (Metformin Hcl*) 1,000 Mg Tablet, 1000 MG PO WITH BREAKFAST DIN NE, #60 TAB 08/08/18 Ranitidine Hcl* (Ranitidine Hcl*) 300 Mg Tablet, 300 MG PO HS, #30 TAB 08/08/18 Diclofenac Sodium (Pen[place]aid) 2 Gm Soln.pk.g., 2 GM TP BID 08/08/18 Alendronate Sodium* (Fosamax*) 70 Mg Tablet, 70 MG PO Q7D, #4 TAB 08/08/18 Ferrous Sulfate* (Ferrous Sulfate*) 325 Mg Tabec, 325 MG PO BID, TAB 08/08/18 Follow-up Plan Please take your medications as prescribed. Please see your doctor in the clinic in the next 1 week. Primary Care Provider Not On Staff Doctor Time spent on discharge: > 30 minutes Pending Labs Laboratory Tests Test 09/02/18 17:10 09/02/18 20:42 09/03/18 02:08 09/03/18 04:46 Bedside 243 278 221 Glucose mg/dL (70-220) mg/dL (70-220) mg/dL (70-220) Sodium Level 135 mmol/L (135-14 4) Potassium 4.8 Level mmol/L (3.5-5. 1) Chloride Level 100 mmol/L (97-110 ) Carbon Dioxide 31 Level mmol/L (21-31) Anion Gap 4 (5-13) Blood Urea 16 Nitrogen mg/dl (7-20) Creatinine 0.67 mg/dl (0.61-1. 24) Est Glomerular > 60 Filtrat mL/min (>60) Rate mL/min Glucose Level 206 mg/dl (70-220) Calcium Level 8.8 mg/dl (8.4-10. 2) Test 09/03/18 04:48 09/03/18 08:26 White Blood 9.4 Count 10^3/ul (4.8-10 .8) Red Blood 2.82 Count 10^6/ul (4.70-6 .10) Hemoglobin 8.6 g/dl (14.0-18.0 ) Hematocrit 26.2 % (42.0-52.0) Mean 92.9 Corpuscular fl (82.0-101.0) Volume Mean 30.5 Corpuscular pg (29.0-33.0) Hemoglobin Mean 32.8 Corpuscular g/dl (32.0-37.0 Hemoglobin Conc ) ent Red Cell 12.7 Distribution % (11.5-14.5) Width Platelet Count 288 10^3/UL (140-41 5) Mean Platelet 10.0 Volume fl (7.4-10.4) Immature 0.500 Granulocytes % % (0.001-0.429) Neutrophils % 67.0 % (39.0-77.0) Lymphocytes % 22.8 % (15.0-51.0) Monocytes % 7.7 % (0.0-11.0) Eosinophils % 1.7 % (0.0-7.0) Basophils % 0.3 % (0.0-2.0) Nucleated Red 0.0 Blood Cells % /100WBC (0.0-0. 0) Immature 0.050 Granulocytes # 10^3/ul (0.0-0. 031) Neutrophils # 6.3 10^3/ul (1.6-7. 5) Lymphocytes # 2.2 10^3/ul (0.8-2. 9) Monocytes # 0.7 10^3/ul (0.3-0. 9) Eosinophils # 0.2 10^3/ul (0.0-0. 5) Basophils # 0.0 10^3/ul (0.0-0. 1) Nucleated Red 0.0 Blood Cells # 10^3/ul (0.0-0. 0) Bedside 256 Glucose mg/dL (70-220) AMANDA ALVAREZ Sep 03, 2018 11:45
--- NOTE | 2018-09-03 11:54 | PSY ---
Date/Time of Note Date/Time of Note DATE: 09/03/18 TIME: 14:48 Psychiatric Subjective Eval Consent Pt consented to telemedicine: Yes Subjective Evaluation Patient location: inpatient Chief Complaint: left leg pain and swelling, hyperglycemia, History of present illness HPI: 68 yo male with ho depression, in hospital for DVT, MD was asked to see pt for suicidal ideation. Pt admits that he has been thinking that there is no reason to be alive, denies a desire to kill himself. Admits to depression. Then tells MD he previously had thoughts to kill people at home but that was years ago. Past Psych Hx: denies ho psych admits or suicide attempts PMHx: DM, htn, DVT Meds: see medical note All: denies MSE: cooperative, casually groomed, mild depression, tears during interview, organized, no delusions or avh passive si denies active si, denies hi IMp: 68 yo male with depression, si pt agrees to voluntary psych admit recommend voluntary psych admit (pt needs admission) Medical history Problems Medical Problems: (1) Foot abrasion, infected Status: Acute (2) Hyperglycemia without ketosis Status: Acute (3) Pain of left leg Status: Acute Allergies: Coded Allergies: No Known Allergy (Unverified , 09/01/18) Psychiatric Objective Eval Mental Status Examination: Laboratory Results Laboratory Tests Test 09/01/18 12:26 09/01/18 12:30 09/01/18 13:55 09/01/18 15:07 Free Thyroxine 1.70 ng/dl White Blood 12.2 10^3/ul Count Red Blood Count 3.27 10^6/ul Hemoglobin 9.8 g/dl Hematocrit 30.1 % Mean Corpuscular 92.0 fl Volume Mean Corpuscular 30.0 pg Hemoglobin Mean Corpuscular 32.6 g/dl Hemoglobin Sepideh nt Red Cell 13.0 % Distribution Width Platelet Count 306 10^3/UL Mean Platelet 10.1 fl Volume Immature 0.300 % Granulocytes % Neutrophils % 83.7 % Lymphocytes % 9.8 % Monocytes % 5.7 % Eosinophils % 0.2 % Basophils % 0.3 % Nucleated Red 0.0 /100WBC Blood Cells % Immature 0.040 10^3/ul Granulocytes # Neutrophils # 10.2 10^3/ul Lymphocytes # 1.2 10^3/ul Monocytes # 0.7 10^3/ul Eosinophils # 0.0 10^3/ul Basophils # 0.0 10^3/ul Nucleated Red 0.0 10^3/ul Blood Cells # Prothrombin Time 13.8 Sec Prothrombin Time 1.1 Ratio INR 1.05 International Normalized Ratio Activated 34.9 Sec Partial Thrombop last Time Sodium Level 137 mmol/L Potassium Level 4.9 mmol/L Chloride Level 97 mmol/L Carbon Dioxide 30 mmol/L Level Anion Gap 10 Blood Urea 22 mg/dl Nitrogen Creatinine 0.95 mg/dl Est Glomerular > 60 mL/min Filtrat Rate mL/min Glucose Level 428 mg/dl Calcium Level 9.3 mg/dl Total Bilirubin 0.6 mg/dl Direct Bilirubin 0.00 mg/dl Indirect 0.6 mg/dl Bilirubin Aspartate Amino 13 IU/L Transf (AST/SGOT ) Alanine 16 IU/L Aminotransferase (ALT/SGPT) Alkaline 66 IU/L Phosphatase Creatine Kinase 39 IU/L Creatine Kinase 1.6 Index Creatinine 0.62 ng/ml Kinase MB (Mass) Troponin I < 0.012 ng/ml B-Type 1350 PG/ML Natriuretic Peptide Total Protein 7.4 g/dl Albumin 3.9 g/dl Globulin 3.50 g/dl Albumin/Globulin 1.11 Ratio Bedside Glucose 390 mg/dL 291 mg/dL Test 09/01/18 19:02 09/01/18 21:07 09/01/18 21:30 09/02/18 00:32 Prothrombin Time 14.2 Sec Prothrombin Time 1.1 Ratio INR 1.09 International Normalized Ratio Activated 43.4 Sec Partial Thrombop last Time Bedside Glucose 128 mg/dL 184 mg/dL Urine Color YELLOW Urine Clarity CLEAR Urine pH 5.0 Urine Specific 1.021 [place] Urine Ketones TRACE mg/dL Urine Nitrite NEGATIVE mg/dL Urine Bilirubin NEGATIVE mg/dL Urine NEGATIVE mg/dL Urobilinogen Urine Leukocyte NEGATIVE Celine/ul Esterase Urine 3 /HPF Microscopic RBC Urine 1 /HPF Microscopic WBC Urine Mucus FEW /HPF Urine Hemoglobin 1+ mg/dL Urine Glucose 3+ mg/dL Urine Total 2+ mg/dl Protein Test 09/02/18 05:01 09/02/18 05:57 09/02/18 09:06 09/02/18 11:37 White Blood 9.6 10^3/ul Count Red Blood Count 2.82 10^6/ul Hemoglobin 8.5 g/dl Hematocrit 26.2 % Mean Corpuscular 92.9 fl Volume Mean Corpuscular 30.1 pg Hemoglobin Mean Corpuscular 32.4 g/dl Hemoglobin Sepideh nt Red Cell 13.0 % Distribution Width Platelet Count 286 10^3/UL Mean Platelet 10.0 fl Volume Immature 0.300 % Granulocytes % Neutrophils % 72.5 % Lymphocytes % 19.0 % Monocytes % 6.7 % Eosinophils % 1.1 % Basophils % 0.4 % Nucleated Red 0.0 /100WBC Blood Cells % Immature 0.030 10^3/ul Granulocytes # Neutrophils # 7.0 10^3/ul Lymphocytes # 1.8 10^3/ul Monocytes # 0.6 10^3/ul Eosinophils # 0.1 10^3/ul Basophils # 0.0 10^3/ul Nucleated Red 0.0 10^3/ul Blood Cells # Sodium Level 137 mmol/L Potassium Level 4.2 mmol/L Chloride Level 102 mmol/L Carbon Dioxide 28 mmol/L Level Anion Gap 7 Blood Urea 21 mg/dl Nitrogen Creatinine 0.67 mg/dl Est Glomerular > 60 mL/min Filtrat Rate mL/min Glucose Level 158 mg/dl Hemoglobin A1c 9.6 % Calcium Level 8.7 mg/dl Triglycerides 63 mg/dl Level Cholesterol 124 mg/dl Level LDL Cholesterol, 62 mg/dl Calculated HDL Cholesterol 49 mg/dl Cholesterol/HDL 2.5 RATIO Ratio Thyroid 0.285 MIU/L Stimulating Hormone (TSH) Bedside Glucose 158 mg/dL 170 mg/dL 256 mg/dL Test 09/02/18 17:10 09/02/18 20:42 09/03/18 02:08 09/03/18 04:46 Bedside Glucose 243 mg/dL 278 mg/dL 221 mg/dL Sodium Level 135 mmol/L Potassium Level 4.8 mmol/L Chloride Level 100 mmol/L Carbon Dioxide 31 mmol/L Level Anion Gap 4 Blood Urea 16 mg/dl Nitrogen Creatinine 0.67 mg/dl Est Glomerular > 60 mL/min Filtrat Rate mL/min Glucose Level 206 mg/dl Calcium Level 8.8 mg/dl Test 09/03/18 04:48 09/03/18 08:26 White Blood 9.4 10^3/ul Count Red Blood Count 2.82 10^6/ul Hemoglobin 8.6 g/dl Hematocrit 26.2 % Mean Corpuscular 92.9 fl Volume Mean Corpuscular 30.5 pg Hemoglobin Mean Corpuscular 32.8 g/dl Hemoglobin Sepideh nt Red Cell 12.7 % Distribution Width Platelet Count 288 10^3/UL Mean Platelet 10.0 fl Volume Immature 0.500 % Granulocytes % Neutrophils % 67.0 % Lymphocytes % 22.8 % Monocytes % 7.7 % Eosinophils % 1.7 % Basophils % 0.3 % Nucleated Red 0.0 /100WBC Blood Cells % Immature 0.050 10^3/ul Granulocytes # Neutrophils # 6.3 10^3/ul Lymphocytes # 2.2 10^3/ul Monocytes # 0.7 10^3/ul Eosinophils # 0.2 10^3/ul Basophils # 0.0 10^3/ul Nucleated Red 0.0 10^3/ul Blood Cells # Bedside Glucose 256 mg/dL Assessment and Plan Recommendation/Plan Multiple antipsychotics: No Discharge Disposition: Psychiatric inpatient Legal Status: Voluntary ARGENISSTACEYAdolfo Sep 03, 2018 11:54
[2018-09-03 15:00] VITALS: BP 121/65; PULSE 75; RESP 18
[2018-09-03 20:00] VITALS: BP 112/56; PULSE 76; RESP 17
[2018-09-03] MEDS: RANITIDINE 150 MG TAB PO SCH (21:11)
[2018-09-04] MEDS: ACCU-CHEK XX SCH (01:47)
[2018-09-04 01:57] VITALS: BP 119/62; PULSE 73; RESP 18
[2018-09-04] MEDS: SOD CHLORIDE 0.45% 1,000 ML IV SCH (05:13)
[2018-09-04] MEDS: INSULIN ASPART [NOVOLOG] 3 ML PEN SC SCH ×2 (08:00→12:31)
[2018-09-04 08:02] VITALS: BP 162/76; PULSE 74; RESP 16
[2018-09-04] MEDS: THYROID 30 MG TAB PO SCH (08:05)
[2018-09-04] MEDS: METOPROLOL (XL) 25 MG TAB PO SCH (08:06)
[2018-09-04] MEDS: AMLODIPINE 10 MG TAB PO SCH (08:06)
[2018-09-04] MEDS: FERROUS SULFATE (EC) 325 MG TAB PO SCH (08:06)
[2018-09-04] MEDS: APIXABAN 5 MG TABLET PO SCH (08:07)
[2018-09-04 14:20] VITALS: BP 124/60; PULSE 76; RESP 16
--- NOTE | 2018-09-04 15:25 | DS ---
Date/Time of Note Date/Time of Note DATE: 09/04/18 TIME: 15:22 Discharge Summary Admission/Discharge Info Admit Date/Time Sep 01, 2018 at 16:31 Discharge Date/Time Sep 04, 2018 Discharge Diagnosis 1. Left lower extremity pain and swelling - secondary to acute deep venous thrombosis -now on Eliquis 2. Hypertension. Blood pressure is stable. 3. History of type 2 diabetes. A1c was 9.6 4. High cholesterol. Patient Condition: Good Consults (tele) psychiatry Procedures None Hx of Present Illness 68-year-old man with past medical history based on records of type 2 diabetes, high cholesterol, hypertension, recent cataract surgery, who has been complaining of left lower extremity pain. Most of the information is obtained from the ER documentation as the patient is unable to provide full HPI at this time. He does, however, deny any chest pain or shortness of breath. Presently, no upper or lower GI bleeding, no nausea, vomiting, diarrhea or constipation, no fevers or chills. Apparently per records at his adult daycare, he had been complaining of left lower extremity pain for the last few days. He was also found at that facility with high blood sugar and was sent for the ER for further evaluation. When he came in, he had a lower extremity ultrasound performed that showed partially compressible left common femoral vein and great saphenous junction compressible suspicious for partially calcified thrombus. His sugar was also found initially 428. He was given insulin in the ER. It is down to 391. No signs of DKA. His BNP was also a little bit high at 1300. Hospital Course Patient was admitted to medical surgical unit. He was placed on Eliquis medication to help treat his blood clot. He was found with slightly elevated BNP levels, echocardiogram was performed, patient had no shortness of breath symptoms. Electrolytes were stable. He was back at his baseline status. No shortness of breath symptoms. Echo showed Normal left ventricular cavity size. Ejection fraction is visually estimated at 50 %. Probable diastolic dysfunction. His A1c is found to be 9.6 and his insulin regimen once dose adjusted accordingly and sugars were stable by the time of discharge. Patient had to stay in the hospital the night of September 02, 2018 as there was not family available to come get the patient and we were still trying to sort out where his actual residence and discharge plan would be. The patient expressed some depressive symptoms and suicidal ideation with no clear plan. He was seen by tele-psych who advised no involunatary hold needed, but the patient would benefit from voluntary inpatient psych hospitalization. The patient is in agreement with this plan. He will need to take 10 mg of Eliquis for another 6 days twice a day. Then starting on September 08, 2018 he will start taking 5 mg twice a day of Eliquis for the next 3 months. See below for full list of discharge medications. Home Meds Active Scripts Apixaban* (Eliquis*) 2.5 Mg Tablet, 5 MG PO BID for 90 Days, #180 TAB Prov:AMANDA ALVAREZ S. 09/02/18 Apixaban* (Eliquis*) 5 Mg Tablet, 10 MG PO BID for 6 Days, #12 TAB Prov:AMANDA ALVAREZ S. 09/02/18 Cephalexin* (Keflex*) 500 Mg Capsule, 500 MG PO Q8, #21 CAP Prov:JESUS WEBSTER MD 09/01/18 Reported Medications Metoprolol Succinate* (Toprol XL*) 25 Mg Tab.sr.24h, 75 MG PO DAILY, #90 TAB 08/08/18 Esomeprazole Mag Trihydrate (Nexium) 40 Mg Capsule.dr, 40 MG PO DAILY, #30 CAP 08/08/18 Thyroid* ([place] Thyroid*) 30 Mg Tablet, 30 MG PO DAILY, TAB 08/08/18 Amlodipine Besylate* (Amlodipine Besylate*) 10 Mg Tablet, 10 MG PO DAILY, #30 TAB 08/08/18 Metformin Hcl* (Metformin Hcl*) 1,000 Mg Tablet, 1000 MG PO WITH BREAKFAST DINNE, #60 TAB 08/08/18 Ranitidine Hcl* (Ranitidine Hcl*) 300 Mg Tablet, 300 MG PO HS, #30 TAB 08/08/18 Diclofenac Sodium (Pennsaid) 2 Gm Soln.pk.g., 2 GM TP BID 08/08/18 Alendronate Sodium* (Fosamax*) 70 Mg Tablet, 70 MG PO Q7D, #4 TAB 08/08/18 Ferrous Sulfate* (Ferrous Sulfate*) 325 Mg Tabec, 325 MG PO BID, TAB 08/08/18 Follow-up Plan Please take your medications as prescribed. Please see your doctor in the clinic in the next 1 week. Primary Care Provider Not On Staff Doctor Time spent on discharge: > 30 minutes Pending Labs Laboratory Tests Test 09/03/18 18:11 09/03/18 21:09 09/04/18 01:45 09/04/18 05:25 Bedside 314 262 220 Glucose mg/dL (70-220) mg/dL (70-220) mg/dL (70-220) White Blood 8.5 Count 10^3/ul (4.8-1 0.8) Red Blood 2.84 Count 10^6/ul (4.70- 6.10) Hemoglobin 8.6 g/dl (14.0-18. 0) Hematocrit 26.4 % (42.0-52.0) Mean 93.0 Corpuscular fl (82.0-101.0 Volume ) Mean 30.3 Corpuscular pg (29.0-33.0) Hemoglobin Mean 32.6 Corpuscular g/dl (32.0-37. Hemoglobin Conc 0) ent Red Cell 12.5 Distribution % (11.5-14.5) Width Platelet Count 300 10^3/UL (140-4 15) Mean Platelet 10.2 Volume fl (7.4-10.4) Immature 0.600 Granulocytes % % (0.001-0.429 ) Neutrophils % 70.8 % (39.0-77.0) Lymphocytes % 18.3 % (15.0-51.0) Monocytes % 8.0 % (0.0-11.0) Eosinophils % 1.9 % (0.0-7.0) Basophils % 0.4 % (0.0-2.0) Nucleated Red 0.0 Blood Cells % /100WBC (0.0-0 .0) Immature 0.050 Granulocytes # 10^3/ul (0.0-0 .031) Neutrophils # 6.0 10^3/ul (1.6-7 .5) Lymphocytes # 1.6 10^3/ul (0.8-2 .9) Monocytes # 0.7 10^3/ul (0.3-0 .9) Eosinophils # 0.2 10^3/ul (0.0-0 .5) Basophils # 0.0 10^3/ul (0.0-0 .1) Nucleated Red 0.0 Blood Cells # 10^3/ul (0.0-0 .0) Sodium Level 136 mmol/L (135-14 4) Potassium 4.8 Level mmol/L (3.5-5. 1) Chloride Level 96 mmol/L (97-110 ) Carbon Dioxide 30 Level mmol/L (21-31) Anion Gap 10 (5-13) Blood Urea 16 Nitrogen mg/dl (7-20) Creatinine 0.72 mg/dl (0.61-1. 24) Est Glomerular > 60 Filtrat mL/min (>60) Rate mL/min Glucose Level 226 mg/dl (70-220) Calcium Level 8.8 mg/dl (8.4-10. 2) Test 09/04/18 07:57 09/04/18 12:27 Bedside 233 240 Glucose mg/dL (70-220) mg/dL (70-220) ABEL DELGADO MD Sep 04, 2018 15:25
[2018-09-08] MEDS ORDERED: ALENDRONATE 70 MG TAB PO SCH (07:30)
== END 2018-09-04 15:55 | DRG 301 ==
LOC: E/R 11:28 → PP2 16:31 → CANBEDREQ 09-02 20:15
PROVIDERS: ADMIT Hospitalist; ATTEND Hospitalist
DX: I82.402 Acute embolism and thrombosis of unspecified deep veins of left lower extremity (principal); E11.9 Type 2 diabetes mellitus without complications; I10 Essential (primary) hypertension; E78.00 Pure hypercholesterolemia, unspecified; Z79.84 Long term (current) use of oral hypoglycemic drugs; M79.605 Pain in left leg
CPT/HCPCS: 71045; 80048; 80053; 80061; 81001; 82550; 82553; 82962; 83036; 83880; 84439; 84443; 84484; 85025; 85610; 85730; 93005; 93306; 93971; 96372; 97162; J1815; J2270; J7030

== ENCOUNTER 2019-02-28 16:04 | Inpatient (IN) | payer MEDICARE, OTHER ==
[~2019-02-28] VITALS: Ht 172.7 cm; Wt 65.0 kg
[~2019-02-28 16:04] MED LIST changes: +APIX2.5T PO; +APIX5TAB PO; +ASPI-817 PO; +ATOR20TA38 PO; +CEPH-443 PO; +DAPA10TA PO; +INSU100I33 SC
[2019-02-28] MEDS ORDERED: SOD CHLORIDE 0.9% 1,000 ML IV STA (16:15)
--- NOTE | 2019-02-28 16:20 | ERD ---
ER Documentation Chief Complaint Chief Complaint pt is bib caregiver sent by PMD for R/O DKA pt hasn't taken meds x 1 wk HPI 68-year-old male presenting with generalized body aches. He was sent from clinic for hyperglycemia. He also complains of generalized weakness. He has been off of his medications for the past 1 week. He denies any fevers or chills. No dysuria or hematuria. No chest pain or abdominal pain. ROS All systems reviewed and are negative except as per history of present illness. Medications Home Meds Reported Medications Insulin Glargine,Hum.rec.anlog (Basaglar Kwikpen U-100) 100 Unit/1 Ml Insuln.pen, SC, EA 02/28/19 Atorvastatin Calcium* (Atorvastatin Calcium*) 20 Mg Tablet, 20 MG PO QHS, #30 TAB 02/28/19 Aspirin* (Aspirin* EC) 81 Mg Tablet.dr, 81 MG PO DAILY, TAB 02/28/19 Apixaban* (Eliquis*) 5 Mg Tablet, 5 MG PO BID, TAB 02/28/19 Dapagliflozin Propanediol (Farxiga) 10 Mg Tablet, 10 MG PO DAILY, #30 TAB 02/28/19 Metoprolol Succinate* (Toprol XL*) 25 Mg Tab.sr.24h, 25 MG PO DAILY, #90 TAB 08/08/18 Amlodipine Besylate* (Amlodipine Besylate*) 10 Mg Tablet, 10 MG PO DAILY, #30 TAB 08/08/18 Metformin Hcl* (Metformin Hcl*) 1,000 Mg Tablet, 1000 MG PO WITH BREAKFAST DINNE, #60 TAB 08/08/18 Alendronate Sodium* (Fosamax*) 70 Mg Tablet, 70 MG PO Q7D, #4 TAB 08/08/18 Discontinued Reported Medications Esomeprazole Mag Trihydrate (Nexium) 40 Mg Capsule.dr, 40 MG PO DAILY, #30 CAP 08/08/18 Thyroid* ([place] Thyroid*) 30 Mg Tablet, 30 MG PO DAILY, TAB 08/08/18 Ranitidine Hcl* (Ranitidine Hcl*) 300 Mg Tablet, 300 MG PO HS, #30 TAB 08/08/18 Diclofenac Sodium (Pennsaid) 2 Gm Soln.pk.g., 2 GM TP BID 08/08/18 Ferrous Sulfate* (Ferrous Sulfate*) 325 Mg Tabec, 325 MG PO BID, TAB 08/08/18 Discontinued Scripts Apixaban* (Eliquis*) 2.5 Mg Tablet, 5 MG PO BID for 90 Days, #180 TAB Prov:CHEMA ALVAREZEEP S. 09/02/18 Apixaban* (Eliquis*) 5 Mg Tablet, 10 MG PO BID for 6 Days, #12 TAB Prov:ANTONIOAMANDA S. 09/02/18 Cephalexin* (Keflex*) 500 Mg Capsule, 500 MG PO Q8, #21 CAP Prov:JESUS WEBSTER MD 09/01/18 Allergies Allergies: Coded Allergies: No Known Allergy (Unverified , 02/28/19) PMhx/Soc History of Surgery: Yes (cardiac stent placement) Anesthesia Reaction: No Hx Neurological Disorder: Yes (numbness and tingling in arms and legs) Hx Respiratory Disorders: No Hx Cardiac Disorders: Yes (CO x3, "heart beats fast then everything spins," HTN ) Hx Psychiatric Problems: Yes (anxiety) Hx Miscellaneous Medical Probl: Yes (HTN,high cholesterol,NIDDM,cardiac cath s/p stent,depression) Hx Alcohol Use: No Hx Substance Use: No Hx Tobacco Use: No FmHx Family History: diabetes Physical Exam Vitals Vital Signs Date Temp Pulse Resp B/P (MAP) Pulse Ox O2 O2 Flow FiO2 Time Delivery Rate 02/28/19 91 18 190/95 99 Room Air 17:46 (126) 02/28/19 98.3 80 16 159/86 98 16:17 (110) Physical Exam Const: No acute distress, cachectic Head: Atraumatic Eyes: Normal Conjunctiva ENT: Normal External Ears, Nose and Mouth. Neck: Full range of motion. No meningismus. Resp: Clear to auscultation bilaterally Cardio: Regular rate and rhythm, no murmurs Abd: Soft, non tender, non distended. Normal bowel sounds Skin: No petechiae or rashes Back: No midline or flank tenderness Ext: No cyanosis, or edema Neur: Awake and alert, oriented, normal speech, moving all extremities spontaneously Psych: Normal Mood and Affect Result Diagram: 02/28/19 1627 02/28/19 1627 Results 24 hrs Laboratory Tests Test 02/28/19 16:26 02/28/19 16:27 02/28/19 18:07 02/28/19 19:00 Bedside Glucose 507 mg/dL 421 mg/dL 440 mg/dL White Blood Count 6.2 10^3/ul Red Blood Count 4.16 10^6/ul Hemoglobin 12.8 g/dl Hematocrit 38.1 % Mean Corpuscular 91.6 fl Volume Mean Corpuscular 30.8 pg Hemoglobin Mean Corpuscular 33.6 g/dl Hemoglobin Concent Red Cell 12.8 % Distribution Width Platelet Count 258 10^3/UL Mean Platelet 10.6 fl Volume Immature 0.500 % Granulocytes % Neutrophils % 57.9 % Lymphocytes % 32.1 % Monocytes % 7.4 % Eosinophils % 1.5 % Basophils % 0.6 % Nucleated Red Blood 0.0 /100WBC Cells % Immature 0.030 10^3/ul Granulocytes # Neutrophils # 3.6 10^3/ul Lymphocytes # 2.0 10^3/ul Monocytes # 0.5 10^3/ul Eosinophils # 0.1 10^3/ul Basophils # 0.0 10^3/ul Nucleated Red Blood 0.0 10^3/ul Cells # Sodium Level 131 mmol/L Potassium Level 6.0 mmol/L Chloride Level 91 mmol/L Carbon Dioxide 30 mmol/L Level Anion Gap 10 Blood Urea Nitrogen 33 mg/dl Creatinine 1.33 mg/dl Est Glomerular 54 mL/min Filtrat Rate mL/min Glucose Level 539 mg/dl Calcium Level 9.6 mg/dl Troponin I 0.017 ng/ml Current Medications Medications Dose Sig/Rangel Start Time Status Last (Trade) Ordered Route PRN Stop Time Admin Dose Reason Admin Sodium 1,000 ml @ Q1H STAT 02/28/19 DC 02/28/19 Chloride 1,000 mls/hr IV 16:15 16:29 02/28/19 17:14 Furosemide 40 mg ONCE STAT 02/28/19 DC 02/28/19 (Lasix) IV 17:48 18:08 02/28/19 17:49 Sodium 30 gm ONCE STAT 02/28/19 DC 02/28/19 Polystyrene PO 17:48 17:48 Sulfonate 02/28/19 17:49 (Kayexelate 15 Gm Kit (Powder+Sorbi alirio)) Insulin 10 unit ONCE STAT 02/28/19 DC 02/28/19 Human IVP 17:48 18:10 Regular 02/28/19 17:49 (Humulin R) Dextrose ONCE PRN 02/28/19 (D50w IV DECREASED 18:00 Syringe) GLUCOSE Ondansetron 4 mg ER BRIDGE 02/28/19 HCl (Zofran PRN IV 19:00 Inj) NAUSEA/VOMITI 03/01/19 18:59 NG 650 mg ER BRIDGE 02/28/19 Acetaminophen PRN PO 19:00 (Tylenol .MILD PAIN 03/01/19 18:59 Tab) 1-3 OR TEMP Procedures/MDM EMERGENT LABS AND DIAGNOSTIC STUDIES: Lab Results above were reviewed and interpreted by me. CBC: no anemia or evidence of infection BMP: Elevated BUN and creatinine, consistent with renal insufficiency. Hyperglycemic with no evidence of acidosis. Hyperkalemic UA: Pending Troponin within normal limits, no evidence of myocardial injury EKG: Rate/Rhythm: Normal Sinus Rhythm QRS, ST, T-waves: Septal Q waves. No changes consistent w/ acute ischemia Impression: No evidence of ischemia or arrhythmia. No changes of hyperkalemia Initial Nursing notes reviewed. Previous Medical Records requested via the Electronic Health Record. EMERGENCY DEPARTMENT COURSE / MEDICAL DECISION MAKING: Patient is presenting with generalized weakness and hyperglycemia. Vitals are notable for hypertension. Work-up consistent with acute renal insufficiency with hyperkalemia and hyperglycemia without evidence of ketoacidosis. Patient treated with IV fluids and IV insulin. Treated for hyperkalemia with IV insulin, Kayexalate, and Lasix. Patient will require admission and is not stable for discharge. Patient to be admitted to telemetry by Dr. Greene Critical Care Time: 35 minutes Treatments/Evaluations: Close monitoring and treatment of unstable vital signs, cardiorespiratory, and neurologic status, while maintaining tight balance of fluid, respiratory, and cardiac interventions. This time includes discussing the case with the patient and the patients family. This time does not include all procedures stated elsewhere in this record. This time also includes reviewing old records, labs and radiological studies. This time includes examining and re- examining the patient. Additionally, this time also includes arranging care with admitting and consulting physicians. Departure Diagnosis: Primary Impression: Hyperglycemia Additional Impressions: Renal insufficiency Hyperkalemia Condition: Serious HARITHA VILLASEÑOR MD Feb 28, 2019 16:20
[2019-02-28] MEDS ORDERED: FUROSEMIDE 40 MG INJ IV STA (17:48)
[2019-02-28] MEDS ORDERED: INSULIN REGULAR, HUMAN 100 UNIT/1 ML 3ML VIAL IVP STA (17:48)
[2019-02-28] MEDS ORDERED: SODIUM POLYSTYRENE 15 GM KIT (POWDER + SORBITOL) PO STA (17:48)
[2019-02-28] MEDS ORDERED: DEXTROSE 50% 50 ML SYRINGE IV PRN (18:00)
[2019-02-28] MEDS ORDERED: ONDANSETRON 4 MG INJ IV PRN ×2 (19:00→21:00)
[2019-02-28] MEDS ORDERED: ACETAMINOPHEN 325 MG TAB PO PRN ×2 (19:00→21:00)
[2019-02-28] MEDS: ATORVASTATIN 20 MG TAB PO SCH (21:00)
[2019-02-28] MEDS ORDERED: NACL 0.9% 3 ML SYG IV SCH (21:00)
[2019-02-28] MEDS ORDERED: HYDROCODONE/APAP (5/325) TAB PO PRN (21:00)
[2019-02-28] MEDS: HYDROCODONE/APAP (5/325) TAB PO PRN (21:03)
[2019-02-28] MEDS: APIXABAN 5 MG TABLET PO SCH (21:13)
[2019-02-28] MEDS: SOD CHLORIDE 0.9% 1,000 ML IV SCH (21:13)
[2019-02-28] MEDS ORDERED: INSULIN GLARGINE [LANTus] (100 UNITS/ML) SYG SC SCH (21:30)
[2019-02-28] MEDS: INSULIN ASPART [NOVOLOG] 3 ML PEN SC SCH (21:31)
[2019-03-01] MEDS: ACCU-CHEK XX SCH (02:20)
[2019-03-01] MEDS: HYDROCODONE/APAP (5/325) TAB PO PRN (05:28)
[2019-03-01] MEDS: ASPIRIN (EC) 81 MG TAB PO SCH (08:23)
[2019-03-01] MEDS: INSULIN ASPART [NOVOLOG] 3 ML PEN SC SCH ×7 (08:27→21:19)
[2019-03-01] MEDS: SOD CHLORIDE 0.9% 1,000 ML IV SCH ×2 (08:49→17:10)
[2019-03-01] MEDS ORDERED: NON-FORMULARY/PATIENT OWN MED (Dapagliflozin Propanediol (Farxiga) 10 MG) PO SCH (09:00)
--- NOTE | 2019-03-01 09:54 | HP ---
Date/Time of Note Date/Time of Note DATE: 03/01/19 TIME: 09:50 Assessment/Plan VTE Prophylaxis SCD applied (from Nsg): Yes Pharmacological prophylaxis: other Lines/Catheters IV Catheter Type (from Nrsg): Saline Lock Assessment/Plan Assessment/Plan 1. Type 2 diabetes with hyperglycemia: No meds x1 week -IV fluids -Adjust insulin as needed 2. Acute renal insufficiency: NS IVF for now 3. Hyperkalemia: Secondary to above -Resolved 4. Hypertension: BP within goal. Continue home med 5. Dyslipidemia: Continue statin 6. Left lower extremity DVT: Continue Eliquis Result Diagram: 03/01/19 0608 03/01/19 0608 Results 24hrs Laboratory Tests Test 02/28/19 16:26 02/28/19 16:27 02/28/19 18:07 02/28/19 19:00 Bedside Glucose 507 *H 421 *H 440 *H White Blood Count 6.2 # Red Blood Count 4.16 #L Hemoglobin 12.8 #L Hematocrit 38.1 #L Mean Corpuscular 91.6 Volume Mean Corpuscular 30.8 Hemoglobin Mean Corpuscular 33.6 Hemoglobin Concent Red Cell 12.8 Distribution Width Platelet Count 258 Mean Platelet Volume 10.6 H Immature 0.500 H Granulocytes % Neutrophils % 57.9 Lymphocytes % 32.1 Monocytes % 7.4 Eosinophils % 1.5 Basophils % 0.6 Nucleated Red Blood 0.0 Cells % Immature 0.030 Granulocytes # Neutrophils # 3.6 Lymphocytes # 2.0 Monocytes # 0.5 Eosinophils # 0.1 Basophils # 0.0 Nucleated Red Blood 0.0 Cells # Sodium Level 131 L Potassium Level 6.0 H Chloride Level 91 L Carbon Dioxide Level 30 Anion Gap 10 Blood Urea Nitrogen 33 H Creatinine 1.33 H Est Glomerular 54 L Filtrat Rate mL/min Glucose Level 539 *H Calcium Level 9.6 Troponin I 0.017 Test 02/28/19 20:23 02/28/19 21:10 03/01/19 02:17 03/01/19 06:08 Bedside Glucose 346 H 277 H 144 White Blood Count 7.7 # Red Blood Count 3.92 L Hemoglobin 12.0 L Hematocrit 35.9 L Mean Corpuscular 91.6 Volume Mean Corpuscular 30.6 Hemoglobin Mean Corpuscular 33.4 Hemoglobin Concent Red Cell 12.9 Distribution Width Platelet Count 249 Mean Platelet Volume 10.4 Immature 0.400 Granulocytes % Neutrophils % 51.8 Lymphocytes % 37.1 Monocytes % 7.1 Eosinophils % 3.0 Basophils % 0.6 Nucleated Red Blood 0.0 Cells % Immature 0.030 Granulocytes # Neutrophils # 4.0 Lymphocytes # 2.9 Monocytes # 0.6 Eosinophils # 0.2 Basophils # 0.1 Nucleated Red Blood 0.0 Cells # Sodium Level 138 Potassium Level 4.5 Chloride Level 99 Carbon Dioxide Level 33 H Anion Gap 6 Blood Urea Nitrogen 37 H Creatinine 1.14 Est Glomerular > 60 Filtrat Rate mL/min Glucose Level 295 #H Hemoglobin A1c 12.0 H Calcium Level 9.1 Magnesium Level 2.1 Total Bilirubin 0.5 Direct Bilirubin 0.00 Indirect Bilirubin 0.5 Aspartate Amino 28 Transf (AST/SGOT) Alanine 27 Aminotransferase (AL T/SGPT) Alkaline Phosphatase 66 Total Protein 6.7 Albumin 3.7 Globulin 3.00 Albumin/Globulin 1.23 Ratio Triglycerides Level 178 H Cholesterol Level 167 LDL Cholesterol, 83 Calculated HDL Cholesterol 48 Cholesterol/HDL 3.4 Ratio Test 03/01/19 07:25 Bedside Glucose 301 H HPI/ROS Admit Date/Time Admit Date/Time Hx of Present Illness Patient is a 62-year-old male with a history of hypertension, type 2 diabetes, dyslipidemia, left lower extremity DVT who was sent from clinic for hyp erglycemia. Patient off of his medication for at least 1 week. He complains of a generalized weakness. When presented to the ER, blood glucose was greater than 500. No DKA. Creatinine 1.33, potassium 6, sodium 131 PMH/Family/Social Past Medical History Past Surgical Hx: other (see HPI) Family History Significant Family History: other (see HPI) Social History Alcohol Use: see history Smoking Status: see history Drug Use: see history Exam Constitutional: other (No acute Distress) Head: normocephalic, atraumatic Eyes: PERRL Respiratory: normal air movement Cardiovascular: nl pulses Gastrointestinal: soft Extremities: normal pulses Medications Current Medications Dextrose (D50w Syringe) ONCE PRN IV DECREASED GLUCOSE; Start 02/28/19 at 18:00 Sodium Chloride 1,000 ml @ 100 mls/hr Q10H IV Last administered on 03/01/19at 08:49; Admin Dose 100 MLS/HR; Start 02/28/19 at 20:37 IV Flush (NS 3 ml) 3 ml PER PROTOCOL IV ; Start 02/28/19 at 21:00 Ondansetron HCl (Zofran Inj) 4 mg Q6H PRN IV NAUSEA/VOMITING; Start 02/28/19 at 21:00 Acetaminophen (Tylenol Tab) 650 mg Q6H PRN PO .PAIN 1-3 OR TEMP; Start 02/28/19 at 21:00 Acetaminophen/ Hydrocodone Bitart ([place] (5/325)) 1 tab Q6H PRN PO .PAIN 4-6; Start 02/28/19 at 21:00 Acetaminophen/ Hydrocodone Bitart ([place] (5/325)) 2 tab Q6H PRN PO .PAIN 7-10 Last administered on 03/01/19 05:28; Admin Dose 2 TAB; Start 02/28/19 at 21:00 Diagnostic Test (Pha) (Accu-Chek) 1 ea 02 XX Last administered on 03/01/19 02:20; Admin Dose 1 EA; Start 03/01/19 at 02:00 Insulin Glargine (Lantus) 16 units DAILY@2000 SC Last administered on 02/28/19 21:31; Admin Dose 16 UNITS; Start 02/28/19 at 21:30 Insulin Aspart (Novolog Insulin Pen) 5 unit WITH MEALS SC Last administered on 03/01/19 08:27; Admin Dose 5 UNIT; Start 03/01/19 at 08:00 Insulin Aspart (Novolog Insulin Pen) NOVOLOG *MODERATE* ALGORITHM WITH MEALS BEDTIME SC Last administered on 03/01/19 08:49; Admin Dose 10 UNIT; Start 02/28/19 at 21:00 Amlodipine Besylate (Norvasc) 10 mg DAILY PO ; Start 03/01/19 at 09:00 Apixaban (Eliquis) 5 mg BID PO Last administered on 02/28/19 21:13; Admin Dose 5 MG; Start 02/28/19 at 21:00 Aspirin (Halfprin) 81 mg DAILY PO Last administered on 03/01/19 08:23; Admin Dose 81 MG; Start 03/01/19 at 09:00 Atorvastatin Calcium (Lipitor) 20 mg QHS PO ; Start 02/28/19 at 21:00 Metformin HCl (Glucophage) 1,000 mg WITH BREAKFAST DINNE PO ; Start 03/01/19 at 08:00 Metoprolol Succinate (Toprol Xl) 25 mg DAILY PO ; Start 03/01/19 at 09:00 Miscellaneous Information 10 mg DAILY PO ; Start 03/01/19 at 09:00; Status UNV Coded Allergies: No Known Allergy (Unverified , 02/28/19) Social History Smoking Status: Unknown if ever smoked Exam/Review of Systems Vital Signs Vitals Vital Signs Date Temp Pulse Resp B/P (MAP) Pulse Ox O2 O2 Flow FiO2 Time Delivery Rate 03/01/19 98.3 82 18 129/66 99 Room Air 05:37 (36) 81 YVONNE CHIU MD Mar 01, 2019 09:54
[2019-03-01] MEDS: metFORMIN 500 MG TAB PO SCH ×2 (11:44→18:37)
[2019-03-01] MEDS: APIXABAN 5 MG TABLET PO SCH ×2 (11:44→20:17)
[2019-03-01] MEDS: AMLODIPINE 10 MG TAB PO SCH (11:44)
[2019-03-01] MEDS: METOPROLOL (XL) 25 MG TAB PO SCH (11:45)
--- NOTE | 2019-03-01 12:47 | PN ---
Date/Time of Note Date/Time of Note DATE: 03/01/19 TIME: 12:46 Assessment/Plan VTE Prophylaxis Pharmacological prophylaxis: apixaban Lines/Catheters IV Catheter Type (from Nrs): Saline Lock Assessment/Plan Hospital Course 1. Type 2 diabetes with hyperglycemia: No meds x1 week -No evidence of DKA but sugars are still elevated -IV fluids -Adjust insulin as needed -elevator operator service consultation 2. Acute renal insufficiency: NS IVF for now 3. Hyperkalemia: Secondary to above -Resolved 4. Hypertension: BP within goal. Continue home med 5. Dyslipidemia: Continue statin 6. Left lower extremity DVT: Continue Eliquis Prophylaxis: Eliquis DC planning: Sugars are still elevated, continue insulin, anticipate DC home tomorrow Result Diagram: 03/01/19 0608 03/01/19 0608 Results 24hrs Laboratory Tests Test 02/28/19 16:26 02/28/19 16:27 02/28/19 18:07 02/28/19 19:00 Bedside Glucose 507 *H 421 *H 440 *H White Blood Count 6.2 # Red Blood Count 4.16 #L Hemoglobin 12.8 #L Hematocrit 38.1 #L Mean Corpuscular 91.6 Volume Mean Corpuscular 30.8 Hemoglobin Mean Corpuscular 33.6 Hemoglobin Concent Red Cell 12.8 Distribution Width Platelet Count 258 Mean Platelet Volume 10.6 H Immature 0.500 H Granulocytes % Neutrophils % 57.9 Lymphocytes % 32.1 Monocytes % 7.4 Eosinophils % 1.5 Basophils % 0.6 Nucleated Red Blood 0.0 Cells % Immature 0.030 Granulocytes # Neutrophils # 3.6 Lymphocytes # 2.0 Monocytes # 0.5 Eosinophils # 0.1 Basophils # 0.0 Nucleated Red Blood 0.0 Cells # Sodium Level 131 L Potassium Level 6.0 H Chloride Level 91 L Carbon Dioxide Level 30 Anion Gap 10 Blood Urea Nitrogen 33 H Creatinine 1.33 H Est Glomerular 54 L Filtrat Rate mL/min Glucose Level 539 *H Calcium Level 9.6 Troponin I 0.017 Test 02/28/19 20:23 02/28/19 21:10 03/01/19 02:17 03/01/19 06:08 Bedside Glucose 346 H 277 H 144 White Blood Count 7.7 # Red Blood Count 3.92 L Hemoglobin 12.0 L Hematocrit 35.9 L Mean Corpuscular 91.6 Volume Mean Corpuscular 30.6 Hemoglobin Mean Corpuscular 33.4 Hemoglobin Concent Red Cell 12.9 Distribution Width Platelet Count 249 Mean Platelet Volume 10.4 Immature 0.400 Granulocytes % Neutrophils % 51.8 Lymphocytes % 37.1 Monocytes % 7.1 Eosinophils % 3.0 Basophils % 0.6 Nucleated Red Blood 0.0 Cells % Immature 0.030 Granulocytes # Neutrophils # 4.0 Lymphocytes # 2.9 Monocytes # 0.6 Eosinophils # 0.2 Basophils # 0.1 Nucleated Red Blood 0.0 Cells # Sodium Level 138 Potassium Level 4.5 Chloride Level 99 Carbon Dioxide Level 33 H Anion Gap 6 Blood Urea Nitrogen 37 H Creatinine 1.14 Est Glomerular > 60 Filtrat Rate mL/min Glucose Level 295 #H Hemoglobin A1c 12.0 H Calcium Level 9.1 Magnesium Level 2.1 Total Bilirubin 0.5 Direct Bilirubin 0.00 Indirect Bilirubin 0.5 Aspartate Amino 28 Transf (AST/SGOT) Alanine 27 Aminotransferase (AL T/SGPT) Alkaline Phosphatase 66 Total Protein 6.7 Albumin 3.7 Globulin 3.00 Albumin/Globulin 1.23 Ratio Triglycerides Level 178 H Cholesterol Level 167 LDL Cholesterol, 83 Calculated HDL Cholesterol 48 Cholesterol/HDL 3.4 Ratio Test 03/01/19 07:25 03/01/19 11:51 Bedside Glucose 301 H 432 *H Subjective 24 Hr Interval Summary Constitutional: no complaints Exam/Review of Systems Exam Vitals Vital Signs Date Temp Pulse Resp B/P (MAP) Pulse Ox O2 O2 Flow FiO2 Time Delivery Rate 03/01/19 98.2 91 20 112/75 96 Room Air 11:40 (87) Constitutional: alert Respiratory: clear to auscultation Cardiovascular: regular rate and rhythm Gastrointestinal: soft; No distended Musculoskeletal: nl extremities to inspection Results Results 24hrs Laboratory Tests Test 02/28/19 16:26 02/28/19 16:27 02/28/19 18:07 02/28/19 19:00 Bedside Glucose 507 *H 421 *H 440 *H White Blood Count 6.2 # Red Blood Count 4.16 #L Hemoglobin 12.8 #L Hematocrit 38.1 #L Mean Corpuscular 91.6 Volume Mean Corpuscular 30.8 Hemoglobin Mean Corpuscular 33.6 Hemoglobin Concent Red Cell 12.8 Distribution Width Platelet Count 258 Mean Platelet Volume 10.6 H Immature 0.500 H Granulocytes % Neutrophils % 57.9 Lymphocytes % 32.1 Monocytes % 7.4 Eosinophils % 1.5 Basophils % 0.6 Nucleated Red Blood 0.0 Cells % Immature 0.030 Granulocytes # Neutrophils # 3.6 Lymphocytes # 2.0 Monocytes # 0.5 Eosinophils # 0.1 Basophils # 0.0 Nucleated Red Blood 0.0 Cells # Sodium Level 131 L Potassium Level 6.0 H Chloride Level 91 L Carbon Dioxide Level 30 Anion Gap 10 Blood Urea Nitrogen 33 H Creatinine 1.33 H Est Glomerular 54 L Filtrat Rate mL/min Glucose Level 539 *H Calcium Level 9.6 Troponin I 0.017 Test 02/28/19 20:23 02/28/19 21:10 03/01/19 02:17 03/01/19 06:08 Bedside Glucose 346 H 277 H 144 White Blood Count 7.7 # Red Blood Count 3.92 L Hemoglobin 12.0 L Hematocrit 35.9 L Mean Corpuscular 91.6 Volume Mean Corpuscular 30.6 Hemoglobin Mean Corpuscular 33.4 Hemoglobin Concent Red Cell 12.9 Distribution Width Platelet Count 249 Mean Platelet Volume 10.4 Immature 0.400 Granulocytes % Neutrophils % 51.8 Lymphocytes % 37.1 Monocytes % 7.1 Eosinophils % 3.0 Basophils % 0.6 Nucleated Red Blood 0.0 Cells % Immature 0.030 Granulocytes # Neutrophils # 4.0 Lymphocytes # 2.9 Monocytes # 0.6 Eosinophils # 0.2 Basophils # 0.1 Nucleated Red Blood 0.0 Cells # Sodium Level 138 Potassium Level 4.5 Chloride Level 99 Carbon Dioxide Level 33 H Anion Gap 6 Blood Urea Nitrogen 37 H Creatinine 1.14 Est Glomerular > 60 Filtrat Rate mL/min Glucose Level 295 #H Hemoglobin A1c 12.0 H Calcium Level 9.1 Magnesium Level 2.1 Total Bilirubin 0.5 Direct Bilirubin 0.00 Indirect Bilirubin 0.5 Aspartate Amino 28 Transf (AST/SGOT) Alanine 27 Aminotransferase (AL T/SGPT) Alkaline Phosphatase 66 Total Protein 6.7 Albumin 3.7 Globulin 3.00 Albumin/Globulin 1.23 Ratio Triglycerides Level 178 H Cholesterol Level 167 LDL Cholesterol, 83 Calculated HDL Cholesterol 48 Cholesterol/HDL 3.4 Ratio Test 03/01/19 07:25 03/01/19 11:51 Bedside Glucose 301 H 432 *H Medications Medication Current Medications Dextrose (D50w Syringe) ONCE PRN IV DECREASED GLUCOSE; Start 02/28/19 at 18:00 Sodium Chloride 1,000 ml @ 100 mls/hr Q10H IV Last administered on 03/01/19 08:49; Admin Dose 100 MLS/HR; Start 02/28/19 at 20:37 IV Flush (NS 3 ml) 3 ml PER PROTOCOL IV ; Start 02/28/19 at 21:00 Ondansetron HCl (Zofran Inj) 4 mg Q6H PRN IV NAUSEA/VOMITING; Start 02/28/19 at 21:00 Acetaminophen (Tylenol Tab) 650 mg Q6H PRN PO .PAIN 1-3 OR TEMP; Start 02/28/19 at 21:00 Acetaminophen/ Hydrocodone Bitart ([place] (5/325)) 1 tab Q6H PRN PO .PAIN 4-6; Start 02/28/19 at 21:00 Acetaminophen/ Hydrocodone Bitart ([place] (5/325)) 2 tab Q6H PRN PO .PAIN 7-10 Last administered on 03/01/19 05:28; Admin Dose 2 TAB; Start 02/28/19 at 21:00 Diagnostic Test (Pha) (Accu-Chek) 1 ea 02 XX Last administered on 03/01/19 02:20; Admin Dose 1 EA; Start 03/01/19 at 02:00 Insulin Glargine (Lantus) 16 units DAILY@2000 SC Last administered on 02/28/19 21:31; Admin Dose 16 UNITS; Start 02/28/19 at 21:30 Insulin Aspart (Novolog Insulin Pen) 5 unit WITH MEALS SC Last administered on 03/01/19 11:56; Admin Dose 5 UNIT; Start 03/01/19 at 08:00 Insulin Aspart (Novolog Insulin Pen) NOVOLOG *MODERATE* ALGORITHM WITH MEALS BEDTIME SC Last administered on 03/01/19 12:00; Admin Dose 12 UNIT; Start 02/28/19 at 21:00 Amlodipine Besylate (Norvasc) 10 mg DAILY PO Last administered on 03/01/19 11:44; Admin Dose 10 MG; Start 03/01/19 at 09:00 Apixaban (Eliquis) 5 mg BID PO Last administered on 03/01/19 11:44; Admin Dose 5 MG; Start 02/28/19 at 21:00 Aspirin (Halfprin) 81 mg DAILY PO Last administered on 03/01/19at 08:23; Admin Dose 81 MG; Start 03/01/19 at 09:00 Atorvastatin Calcium (Lipitor) 20 mg QHS PO ; Start 02/28/19 at 21:00 Metformin HCl (Glucophage) 1,000 mg WITH BREAKFAST DINNE PO Last administered on 03/01/19at 11:44; Admin Dose 1,000 MG; Start 03/01/19 at 08:00 Metoprolol Succinate (Toprol Xl) 25 mg DAILY PO Last administered on 03/01/19at 11:45; Admin Dose 25 MG; Start 03/01/19 at 09:00 Miscellaneous Information 10 mg DAILY PO ; Start 03/01/19 at 09:00; Status GEORGE BERRY Mar 01, 2019 12:47
[2019-03-01] MEDS ORDERED: INSULIN GLARGINE [LANTus] (100 UNITS/ML) SYG SC ONE (13:00)
[2019-03-01 15:50] VITALS: Ht 172.7 cm; Wt 65.0 kg
--- OUTSIDE RECORDS SUMMARY | 2019-03-01 16:03 | XMS REPORT | Continuity of Care Document ---
Demographics [facility] [id number] Date(s): 10/05/18 - 10/08/18 [facility] [address] [place] [address] [facility] Encounter Diagnosis Spinal cord injury, C1-C7 (Discharge Diagnosis) - 10/04/18 Discharge Disposition: Alf Facility Attending Physician: MD Pond Narbeh Admitting Physician: MD Pond Narbeh Allergies, Adverse Reactions, Alerts No Known Allergies Medications acetaminophen 650 mg oral tablet, extended release = 2 Tab, ORAL, Q6H, PRN Pain-Mild (Scale 1-3), Cap, 0 Refill(s), Maintenance Start Date: 10/05/18 Stop Date: 11/04/18 Status: Ordered acetaminophen-HYDROcodone 325 mg-5 mg oral tablet 1 Tab, ORAL, Q8H, PRN Pain-Moderate to Severe (Scale 4-10), 0 Refill(s), Mainten ance Start Date: 10/05/18 Stop Date: 11/04/18 Status: Ordered alendronate 70 mg oral tablet = 1 Tab, ORAL, QSun, Tab, 0 Refill(s), Maintenance Start Date: 10/05/18 Stop Date: 11/04/18 Status: Ordered amLODIPine 10 mg oral tablet = 1 Tab, ORAL, DAILY, 0 Refill(s), Maintenance Start Date: 10/05/18 Stop Date: 11/04/18 Status: Ordered [place] Thyroid 30 mg oral tablet = 1 Tab, ORAL, DAILY, 0 Refill(s), Maintenance Start Date: 10/05/18 Stop Date: 11/04/18 Status: Ordered ascorbic acid 500 mg oral capsule = 1 Cap, ORAL, DAILY, 0 Refill(s), Maintenance Start Date: 10/05/18 Stop Date: 11/04/18 Status: Ordered Culturelle (lactobacillus rhamnosus) Culturelle (lactobacillus rhamnosus), 1 capsule, ORAL, Q12H, 0 Refill(s), Mainte nanportillo Start Date: 10/05/18 Stop Date: 11/04/18 Status: Ordered Eliquis 5 mg oral tablet ORAL, BID, 0 Refill(s), Maintenance Start Date: 10/05/18 Status: Ordered ertapenem 1 g injection DAILY, 0 Refill(s), Maintenance Start Date: 10/05/18 Stop Date: 11/04/18 Status: Ordered ferrous sulfate 325 mg (65 mg elemental iron) oral tablet = 1 Tab, ORAL, BID, 0 Refill(s), Maintenance Start Date: 10/05/18 Stop Date: 11/04/18 Status: Ordered insulin glargine 10 units, SUBQ, QBedtime, 0 Refill(s), Maintenance Start Date: 10/05/18 Stop Date: 11/04/18 Status: Ordered insulin regular Sliding Scale High (Obese;Steroids;Stress) AC&Bed, 0 Refill(s), Maintenance Start Date: 10/05/18 Stop Date: 11/04/18 Status: Ordered metoprolol succinate 25 mg oral capsule, extended release DAILY, 0 Refill(s), Maintenance Start Date: 10/05/18 Stop Date: 11/04/18 Status: Ordered Multivitamins with Minerals oral tablet 1 Tab, ORAL, DAILY, 0 Refill(s), Maintenance Start Date: 10/05/18 Stop Date: 11/04/18 Status: Ordered SEROquel 25 mg oral tablet = 1 Tab, ORAL, QBedtime, 0 Refill(s), Maintenance Start Date: 10/05/18 Stop Date: 11/04/18 Status: Ordered venlafaxine 75 mg oral tablet = 1 Tab, ORAL, DAILY, 0 Refill(s), Maintenance Start Date: 10/05/18 Stop Date: 11/04/18 Status: Ordered Problem List ical Non-Specifi ed INE VENIPUNCTURE leted mpleted FUSION (C4, C3)1 1auto-populated from documented surgical case Immunizations No data available for this section Vital Signs [id number] bvgof0w mcfid4z PM) AM) AM) 83 bpm 1:46 PM) 10:28 AM) 9:20 AM) PM) 154/82 mmHg *HI* 3:04 PM) 1:46 PM) 10:28 AM) 5 % 10:28 AM) 5:37 AM) 5:37 AM) AM) 5:37 AM) AM) ) AM) PM) 09/05 10:45 AM) PM) :55 PM) PM) PM) 1:46 PM) 5:37 AM) 9:20 PM) 3:04 PM) 1:46 PM) 10:28 AM) invasive BP device, Left arm device, Left arm device, Left arm 10:28 PM) AM) invasive BP device 1:46 PM) 10:28 AM) 8:23 AM) ght (kg) 2:00 AM) kg/m2] red 2:00 AM) 2:00 AM) mmands Cues required 10:30 AM) AM) 10:30 AM) fety/Judgment act 10:30 AM) 10:30 AM) ion Memory iate, Behav appropriate, Behav or ior ior appropriate, Employee Relations Representative appropriate, Employee Relations Representative appropriate, Employee Relations Representative strength firm and strength firm and strength firm and equal, Moves equal, Opens eyes equal, Opens eyes extremities spontaneously, PER spontaneously, Millicent equally, Opens eyes RLA, Verbal bal response spontaneously, Verb response appropriate al response appropriate / 7:20 AM) PM) Ofygwgc8Xe dgpze7e AM) AM) *LOW* 7:26 AM) 7:47 AM) 6:26 AM) OW* 7:26 AM) 7:47 AM) 6:26 AM) 28.4 % *LOW* 7:26 AM) 7:47 AM) 6:26 AM) fL AM) AM) 0.2 pg AM) AM) 3.9 gm/dL 6 AM) AM) AM) 9 7:26 AM) 7:47 AM) 6:26 AM) uL 10/07/18 7:47 AM) AM) 7:47 AM) AM) ) *HI* 7:47 AM) .3 % *LOW* 7:47 AM) 1 % 7:47 AM) 6:26 AM) 7:26 AM) 7:47 AM) *HI* 6:26 AM) 10/06/18 7:26 AM) 7:47 AM) 6:26 AM) 6:26 AM) AM) K/uL 6:26 7:47 AM) AM) K/uL 6:26 AM) AM) /uL 6:26 AM) AM) K/uL 6:26 AM) AM) *NA* 7:26 AM) 7:47 AM) 6:26 AM) dana4d qqpio1s wdwog6f sec] 7:00 PM) *HI* - Patient [id number] qmikk5g yrnfb0e *NA* - Source/Collect [Yellow] Appearance 2:30 AM) 2:30 AM) *ABN* - Protein mg/dL] ve mg/dL] 2:30 AM) ve mg/dL ative mg/dL] e [Negative] 2:30 AM) *HI* - RBC [0-2 /HPF] 2:30 AM) *HI* - Casts, Granular na4Bd hkpvt9z owdzg7v M) AM) PM) 12:48 AM) PM) L 12:48 AM) PM) mmol/L 12:48 AM) PM) 12:48 AM) PM) 12:48 AM) PM) 08/05 6:26 AM) 12:48 PM) mg/dL *LOW* 7:26 AM) AM) PM) m2 *NA* 7:26 AM) 6:26 AM) 12:48 PM) m2 *NA* 7:26 AM) 6:26 AM) 12:48 PM) 7:26 AM) *HI* 6:26 AM) 12:48 PM) NA* 7:26 AM) 6:26 AM) 12:48 PM) *LOW* 7:26 AM) 6:26 AM) 12:48 PM) AM) AM) *LOW* al Protein *LOW* umin Level 5 gm/dL] *LOW* Ratio [1.1-2.2] 1.2 mg/dL] dori Cholesterol iglycerides [0-149 / 12:48 PM) 08/05 12:48 PM) L Cholesterol, *NA* L/HDL Ratio *NA* DL Cholesterol, 10/05/18 12:48 PM) ] *HI* moglobin A1C by *Tobacco Use Screen Medical Equipment Implanted Date: 10/06/18 Target Site: Unknown nal and 00 hority: mation 1 0 hority: r this section Goals No data available for this section Health Concerns No data available for this section Reason for Referral No data available for this section Hospital Discharge Instructions No data available for this section Functional Status 10/08/18 pany name cipated discharge acility ticipated discharge
[2019-03-01] MEDS ORDERED: GLUCOSE GEL 15 GRAM TUBE BUCCAL PRN (16:30)
[2019-03-01] MEDS ORDERED: DEXTROSE 50% 50 ML SYRINGE IV PRN ×2 (16:30)
[2019-03-01] MEDS ORDERED: GLUCOSE GEL 15 GRAM TUBE PO PRN ×2 (16:30)
[2019-03-01] MEDS ORDERED: GLUCAGON 1 MG INJ IM PRN (16:30)
[2019-03-01] MEDS: FARXIGA IS NON FORMULARY ITEM...PLEASE CONSIDER AN ORDER TO USE PATIENT'S OWN MED XX SCH (17:00)
[2019-03-01 17:13] VITALS: BP 138/74; PULSE 68; RESP 20
[2019-03-01 19:16] VITALS: BP 101/57; PULSE 69; RESP 18
[2019-03-01] MEDS ORDERED: INSULIN GLARGINE [LANTus] (100 UNITS/ML) SYG SC SCH (20:00)
[2019-03-01] MEDS: ATORVASTATIN 20 MG TAB PO SCH (20:17)
[2019-03-01 23:41] VITALS: BP 116/62; PULSE 69; RESP 17
[2019-03-02] MEDS: ACCU-CHEK XX SCH (01:36)
[2019-03-02] MEDS: SOD CHLORIDE 0.9% 1,000 ML IV SCH ×2 (01:37→12:00)
[2019-03-02 03:59] VITALS: BP 107/55; PULSE 74; RESP 18
[2019-03-02 07:41] VITALS: BP 109/60; PULSE 75; RESP 18
[2019-03-02] MEDS: FARXIGA IS NON FORMULARY ITEM...PLEASE CONSIDER AN ORDER TO USE PATIENT'S OWN MED XX SCH ×2 (08:00)
[2019-03-02] MEDS: INSULIN ASPART [NOVOLOG] 3 ML PEN SC SCH ×4 (08:39→12:04)
[2019-03-02] MEDS: metFORMIN 500 MG TAB PO SCH (08:42)
[2019-03-02] MEDS: ASPIRIN (EC) 81 MG TAB PO SCH (08:42)
[2019-03-02] MEDS: AMLODIPINE 10 MG TAB PO SCH (08:43)
[2019-03-02] MEDS: APIXABAN 5 MG TABLET PO SCH (08:43)
[2019-03-02] MEDS: METOPROLOL (XL) 25 MG TAB PO SCH (08:43)
--- NOTE | 2019-03-02 10:29 | PDOCDIS ---
Discharge Instructions CONDITION [id number] Patient Condition: [id number] Good HOME CARE INSTRUCTIONS: [id number] Special Diet: [id number] DIABETIC ACTIVITY: [id number] Activity Restrictions: [id number] No Restrictions FOLLOW UP/APPOINTMENTS Follow-up Plan FOLLOW UP WITH YOUR PCP IN 1-2 WEEKS GEORGE JOHANSEN Mar 02, 2019 10:29
[2019-03-02 10:58] VITALS: BP 108/58; PULSE 67; RESP 18
--- NOTE | 2019-03-02 18:17 | DS ---
Date/Time of Note Date/Time of Note DATE: 03/02/19 TIME: 18:15 Discharge Summary Admission/Discharge Info Admit Date/Time Feb 28, 2019 at 18:33 Discharge Date/Time Mar 02, 2019 at 15:59 Discharge Diagnosis 1. Type 2 diabetes with hyperglycemia: No meds x1 week -No evidence of DKA but sugars were elevated on arrival, sugars now stable with insulin -Status post fluids -Patient has been noncompliant and states that he will be compliant at this point 2. Acute renal insufficiency: Resolved with fluids 3. Hyperkalemia: Secondary to above -Resolved 4. Hypertension: BP within goal. Continue home med 5. Dyslipidemia: Continue statin 6. Left lower extremity DVT: Continue Eliquis Patient Condition: Good Hospital Course Patient is a 68-year-old male with a history of diabetes, hypertension, dyslipidemia who presents with hyperglycemia and mild renal failure. Patient had no evidence of DKA, patient was given insulin and fluids with stabilization of glucose. Patient has been noncompliant with insulin and adherence was strongly advised. Patient's renal failure did resolve with fluids, patient was stable for DC, on day of discharge patient vitals, labs and physical exam are stable. Home Meds Reported Medications Insulin Glargine,Hum.rec.anlog (Basaglar Kwikpen U-100) 100 Unit/1 Ml Insuln.pen, SC, EA 02/28/19 Atorvastatin Calcium* (Atorvastatin Calcium*) 20 Mg Tablet, 20 MG PO QHS, #30 TAB 02/28/19 Aspirin* (Aspirin* EC) 81 Mg Tablet.dr, 81 MG PO DAILY, TAB 02/28/19 Apixaban* (Eliquis*) 5 Mg Tablet, 5 MG PO BID, TAB 02/28/19 Dapagliflozin Propanediol (Farxiga) 10 Mg Tablet, 10 MG PO DAILY, #30 TAB 02/28/19 Metoprolol Succinate* (Toprol XL*) 25 Mg Tab.sr.24h, 25 MG PO DAILY, #90 TAB 08/08/18 Amlodipine Besylate* (Amlodipine Besylate*) 10 Mg Tablet, 10 MG PO DAILY, #30 TAB 08/08/18 Metformin Hcl* (Metformin Hcl*) 1,000 Mg Tablet, 1000 MG PO WITH BREAKFAST DINNE, #60 TAB 08/08/18 Alendronate Sodium* (Fosamax*) 70 Mg Tablet, 70 MG PO Q7D, #4 TAB 08/08/18 Discontinued Reported Medications Esomeprazole Mag Trihydrate (Nexium) 40 Mg Capsule.dr, 40 MG PO DAILY, #30 CAP 08/08/18 Thyroid* ([place] Thyroid*) 30 Mg Tablet, 30 MG PO DAILY, TAB 08/08/18 Ranitidine Hcl* (Ranitidine Hcl*) 300 Mg Tablet, 300 MG PO HS, #30 TAB 08/08/18 Diclofenac Sodium (Pen[place]aid) 2 Gm Soln.pk.g., 2 GM TP BID 08/08/18 Ferrous Sulfate* (Ferrous Sulfate*) 325 Mg Tabec, 325 MG PO BID, TAB 08/08/18 Discontinued Scripts Apixaban* (Eliquis*) 2.5 Mg Tablet, 5 MG PO BID for 90 Days, #180 TAB Prov:AMANDA ALVAREZ S. 09/02/18 Apixaban* (Eliquis*) 5 Mg Tablet, 10 MG PO BID for 6 Days, #12 TAB Prov:AMANDA ALVAREZ S. 09/02/18 Cephalexin* (Keflex*) 500 Mg Capsule, 500 MG PO Q8, #21 CAP Prov:JESUS WEBSTER MD 09/01/18 Follow-up Plan FOLLOW UP WITH YOUR PCP IN 1-2 WEEKS Primary Care Provider Not On Staff Doctor Time spent on discharge: > 30 minutes GEORGE JOHANSEN Mar 02, 2019 18:17
== END 2019-03-02 15:59 | disposition home or self-care (01) | DRG 638 ==
LOC: E/R 16:04 → TEL 18:33
PROVIDERS: ADMIT Internal Medicine; ATTEND Internal Medicine
DX: E11.65 Type 2 diabetes mellitus with hyperglycemia (principal); R64 Cachexia; N17.9 Acute kidney failure, unspecified; E87.5 Hyperkalemia; I10 Essential (primary) hypertension; E78.5 Hyperlipidemia, unspecified; F41.9 Anxiety disorder, unspecified; F32.9 Major depressive disorder, single episode, unspecified; Z68.21 Body mass index [BMI] 21.0-21.9, adult; Z79.4 Long term (current) use of insulin; Z91.14 Patient's other noncompliance with medication regimen
CPT/HCPCS: 36415; 80048; 80053; 80061; 82962; 83036; 83735; 84484; 85025; 93005; 96374; 96375; J1815; J1940; J7030